=== PATIENT | male | born 1945 ===

== ENCOUNTER 2016-12-21 11:44 | Inpatient (IN) | payer MEDICARE, OTHER ==
[2016-12-21] MEDS ORDERED: NALOXONE 0.4 MG/ML 1 ML VIAL IV PRN (14:39)
[2016-12-21] MEDS ORDERED: ACETAMINOPHEN TAB 325 MG TAB PO PRN (14:39)
[2016-12-21] MEDS ORDERED: ALPRAZolam 0.25 MG TAB PO PRN (14:39)
[2016-12-21] MEDS ORDERED: TEMAZEPAM 15 MG CAP PO PRN (14:39)
[2016-12-21] MEDS ORDERED: HYDROcodone/APAP 5-325MG 1 EACH TAB PO PRN (14:39)
[2016-12-21] MEDS ORDERED: fluPHENAZine DECANOATE 25 MG/ML 5ML MDV IM SCH (14:45)
--- NOTE | 2016-12-21 15:06 | XR ---
EXAMINATION TYPE: XR chest 1V portable DATE OF EXAM: 12/21/2016 3:00 PM COMPARISON: Prior chest x-ray second of January 2013 HISTORY: Pleural effusion TECHNIQUE: Single frontal view of the chest is obtained. FINDINGS: Opacity is present throughout the left hemithorax. Heart size may be somewhat accentuated by rotation. Right lung is clear. No evident pneumothorax. IMPRESSION: Findings may represent a large pleural effusion with associated atelectasis
[2016-12-21] MEDS: IPRATROPIUM 0.5 MG/2.5 ML NEBU INHALATION SCH ×2 (15:20→19:13)
[2016-12-21] MEDS: LEVALBUTEROL NEB (CONC) 1.25 MG/0.5 ML AMP INHALATION SCH ×2 (15:20→19:13)
[2016-12-21 15:36] LABS: Basophils % (A) 0 %; CH 29.6; Eosinophils % (A) 0 %; HCT 32.6 % (39.0-53.0); HDW 2.62; HGB 10.3 gm/dL (13.0-17.5); Luc % (Auto) 2; Lymphocytes # (A) 0.5 k/uL (1.0-4.8); Lymphocytes % (A) 4 %; MCH 29.3 pg (25.0-35.0); MCHC 31.6 g/dL (31.0-37.0); MCV 92.8 fL (80.0-100.0); Mean Platelet Volume 6.6; Monocytes % (A) 8 %; Neutrophils # (A) 11.3 k/uL (1.3-7.7); Neutrophils % (A) 86 %; RBC 3.51 m/uL (4.30-5.90); RDW 13.3 % (11.5-15.5); WBC 13.1 k/uL (3.8-10.6); WBC (Perox) 14.42
[2016-12-21 15:49] LABS: ALT 210 U/L (21-72); AST 162 U/L (17-59); Alkaline Phosphatase 513 U/L (38-126); Anion Gap 10 mmol/L; Blood Urea Nitrogen 7 mg/dL (9-20); Carbon Dioxide 24 mmol/L (22-30); Chloride 102 mmol/L (98-107); Glucose 86 mg/dL (74-99); Non-African American GFR(MDRD) >60 (>60 ml/min/1.73 sqM); Potassium 4.1 mmol/L (3.5-5.1); Sodium 136 mmol/L (137-145); Total Bilirubin 0.5 mg/dL (0.2-1.3); Total Protein 4.9 g/dL (6.3-8.2)
[2016-12-21 15:50] LABS: Hemoglobin A1C 5.6 % (4.2-6.1)
--- NOTE | 2016-12-21 16:10 | XR ---
EXAMINATION TYPE: XR chest 1V portable DATE OF EXAM: 12/21/2016 3:58 PM HISTORY: s/p lt thoracentesis. REFERENCE: Previous study dated 12/21/2016. FINDINGS: There is improved aeration of the left lung. No pneumothorax is seen. The heart is upper limits of normal in size. IMPRESSION: I DO NOT SEE A POSTTHORACENTESIS COMPLICATION.
[2016-12-21] MEDS: PIPERACILLIN-TAZOBACTAM 3.375 GM in DEXTROSE/WATER 1 50ML.BAG IVPB SCH ×2 (16:33→23:18)
[2016-12-21] MEDS: HEPARIN SODIUM,PORCINE 5,000 UNIT/ML 1 ML VIAL SQ SCH ×2 (16:35→20:52)
[2016-12-21] MEDS: cloZAPine 100 MG TAB PO SCH ×2 (16:36→20:49)
[2016-12-21] MEDS: cloZAPine 25 MG TAB PO SCH (16:36)
[2016-12-21] MEDS: methylPREDNISolone SOD SUCCI 125 MG/2 ML VIAL IV SCH ×2 (16:37→23:18)
[2016-12-21] MEDS: SODIUM CHLORIDE 0.9% 1,000 ML IV SCH (16:37)
--- NOTE | 2016-12-21 16:38 | P.CNPUL ---
History of Present Illness Consult date: 12/21/16 Requesting physician: Karina Mccrary Reason for consult: pleural effusion Chief complaint: Shortness of breath and fever History of present illness: This is a 71-year-old white male with history of COPD, bipolar disorder, patient is a resident of a alf, admitted recently to [facility] with mostly symptoms of cough, fever, chills, and cough was productive with yellow phlegm. Chest x-ray and CT of the chest showed pneumonia involving the lingula left lower lobe and there was evidence of a left parapneumonic effusion. Patient was treated with a few days' history of antibiotics, bronchodilators, steroids, and he was not making much improvement. Hence the referral was made to our institution. Upon evaluation the patient, I felt the patient would benefit from a left sided thoracentesis which would be diagnostic and therapeutic at the same time. Hence I performed a left-sided thoracentesis at bedside, and I was able to drain about 550 mL of nonbloody pleural effusion, but felt to be exudative unless proven otherwise. The fluid was sent for different diagnostic studies. The patient himself is a very poor historian. And he is known to have history of bipolar disorder, questionable schizophrenia. Review of Systems ROS unobtainable: due to mental status Past Medical History Past Medical History: Asthma, COPD, GERD/Reflux, Hyperlipidemia, Pneumonia Additional Past Medical History / Comment(s): DJD, arthritis shoulders, past L leg fx-limps and one leg shorter. History of Any Multi-Drug Resistant Organisms: None Reported Past Surgical History: Appendectomy, Orthopedic Surgery, Tonsillectomy Additional Past Surgical History / Comment(s): L hip repair after fx, deviated septal surgery, hemorrhoidectomy, colonoscopy. Past Anesthesia/Blood Transfusion Reactions: No Reported Reaction Past Psychological History: Bipolar, Depression, Schizophrenia Additional Psychological History / Comment(s): Pt resides at [facility]. He has paranoid schizophrenia. He uses no assistive device. He uses the bus system. He states he is thinking about moving. Smoking Status: Current every day smoker Past Alcohol Use History: None Reported Additional Past Alcohol Use History / Comment(s): Pt states he smokes one cigarette a day. He started smoking in 1966. He states he used to drink occasionally but has had nothing to drink in 6 months. Past Drug Use History: Cocaine Additional Drug Use History / Comment(s): Pt states he used to use cocaine but quit that in 1991. - Past Family History Father Family Medical History: No Reported History Additional Family Medical History / Comment(s): Father was healthy and at the age of 83 yrs. Mother Family Medical History: No Reported History Additional Family Medical History / Comment(s): Mother was healthy and in her mid 80's. Medications and Allergies Home Medications Medication Instructions Recorded Confirmed Type Acetaminophen Tab [Tylenol Tab] 500 - 1,000 mg PO Q6HR PRN 12/21/16 12/21/16 History Aspirin 81 mg PO DAILY 12/21/16 12/21/16 History Atorvastatin Calcium [Lipitor] 10 mg PO DAILY 12/21/16 12/21/16 History Benztropine Mesylate 0.5 mg PO BID 12/21/16 12/21/16 History Calcium Carb-Vit D 500Mg-200Un 1 cap PO DAILY 12/21/16 12/21/16 History [Oscal 500+D] Diltiazem Cd [Cardizem Cd] 120 mg PO DAILY 12/21/16 12/21/16 History Divalproex Sodium [Divalproex 500 mg PO BID 12/21/16 12/21/16 History Sodium ER] Docusate [Colace] 100 mg PO DAILY 12/21/16 12/21/16 History Ferrous Sulfate [Feosol] 325 mg PO DAILY 12/21/16 12/21/16 History Ipratropium Nebulized [Atrovent 0.5 mg INHALATION RT-Q6H PRN 12/21/16 12/21/16 History Nebulized] Lisinopril [Zestril] 2.5 mg PO DAILY 12/21/16 12/21/16 History Montelukast [Singulair] 10 mg PO HS 12/21/16 12/21/16 History Multivitamins, Thera [Multivitamin 1 tab PO DAILY 12/21/16 12/21/16 History (formulary)] Ranitidine HCl 150 mg PO BID 12/21/16 12/21/16 History Thiamine [Vitamin B-1] 100 mg PO DAILY 12/21/16 12/21/16 History cloZAPine [Clozaril] 75 mg PO QAM 12/21/16 12/21/16 History cloZAPine [Clozaril] 100 mg PO QAM 12/21/16 12/21/16 History cloZAPine [Clozaril] 200 mg PO HS 12/21/16 12/21/16 History fluPHENAZine DECANOATE [Prolixin 1 dose IM Q21D 12/21/16 12/21/16 History Decanoate] Allergies Allergy/AdvReac Type Severity Reaction Status Date / Time bee pollen Allergy Anaphylaxis Verified 12/21/16 14:16 Physical Exam Vitals: Vital Signs Temp Pulse Resp BP Pulse Ox 12/21/16 15:00 98.9 F 98 18 154/97 93 L 12/21/16 13:37 99.5 F 101 H 20 160/79 92 L Intake and Output 12/21/16 12/21/16 12/21/16 06:59 14:59 22:59 Output Total 150 Balance -150 Output: Urine 150 Other: # Voids 1 Weight 77.111 kg Patient Weight 12/22/16 06:59 Weight 77.111 kg Physical Exam: Revealed a 71-year-old white male in no distress HEENT:[Neck is supple.] [No neck masses.] [No thyromegaly.] [No JVD.] Chest: [Diminished breath sounds and dullness at the left base.] Cardiac Exam: [Normal S1 and S2, no S3 gallop, no murmur.] Abdomen: [Soft, nontender, no megaly, no rebound, no guarding, normal bowel sounds.] Extremities: [No clubbing, no edema, no cyanosis.] Neurological Exam: [Patient is a bit confused, otherwise no focal neurologic deficit.] Results - Laboratory Findings CBC and BMP: 12/21/16 15:10 12/21/16 15:10 Abnormal lab findings: Abnormal Labs 12/21/16 12/21/16 15:10 15:10 WBC 13.1 H RBC 3.51 L Hgb 10.3 L Hct 32.6 L Neutrophils # 11.3 H Lymphocytes # 0.5 L Sodium 136 L BUN 7 L Creatinine 0.62 L Calcium 8.0 L AST 162 H ALT 210 H Alkaline Phosphatase 513 H Total Protein 4.9 L Albumin 2.4 L - Diagnostic Findings Chest x-ray: image reviewed (Large left pleural effusion was noted and atelectasis of the left lower lobe was also noted. Possible consolidation of the left lower lobe.) Assessment and Plan Plan: Impression: 1 acute left lower lobe pneumonia with left parapneumonic effusion, community- acquired, unless proven otherwise. 2 history of COPD severity of which is not clear, 3 history of bipolar disorder. Recommendation: Agree with the present treatment, present antibiotics, bronchodilators, steroids, I will try to review the results of the ultrasound post thoracentesis, since I felt there is some component of loculation noted in the left pleural space which may eventually require surgical intervention. The fluid I drained was sent for different diagnostic studies, results of which are pending. Continue Zosyn, methylprednisolone, Xopenex and Atrovent, and the rest of his psych medications. We'll continue to follow. Time with Patient: Greater than 30
[2016-12-21 17:09] LABS: Glucose,Whole Blood 88 mg/dL (75-99)
[2016-12-21 17:14] LABS: RBC, Body Fluid 4000 /uL
[2016-12-21] MEDS: INSULIN LISPRO (humaLOG) 300 UNIT/3 ML VIAL SQ SCH ×2 (17:16→20:55)
[2016-12-21] MEDS: PANTOPRAZOLE 40 MG TABLET PO SCH (17:28)
--- NOTE | 2016-12-21 17:38 | HP ---
DATE OF ADMISSION: 12/21/2016 CHIEF COMPLAINT: Shortness of breath and cough. HISTORY OF PRESENT ILLNESS: This 71 -year-old gentleman with past medical history of asthma, chronic obstructive pulmonary disease, GERD, hypertension, hyperlipidemia, history of degenerative joint disease, history of appendectomy, history of tonsillectomy, and bipolar depression, was living in [facility]. The patient presented to [facility] with complaints of persistent cough, generalized weakness about two weeks duration. The patient was thought to have community acquired pneumonia and also left lingual area. The patient was admitted and monitored closely. The white count came down initially per [facility] physician but because of lack of improvement, repeat x-ray as well as a CAT scan was also done which showed significant effusion on the left side and Guevara from [facility] discussed the case at length over the phone and the patient was transferred to [facility] for further evaluation and treatment. There is no history of any fever, rigors or chills. No history of headache, loss of consciousness or seizures at this time. PAST MEDICAL HISTORY: History of asthma, COPD, GERD, hypertension, hyperlipidemia, pneumonia, degenerative joint disease, history of appendectomy, history of DJD, bipolar, depression, schizophrenia. MEDICATIONS PRIOR TO ADMISSION: Home medications are: 1. Zestril 2.5 mg daily. 2. Tylenol 500 q6h p.r.n. 3. Multivitamins one p.o. daily. 4. Iron sulfate 320 mg daily. 5. Cardizem CD 120 mg. 6. Lipitor 10 mg p.o. daily. 7. Aspirin 81 mg. 8. Clozaril 70 mg in the morning. 9. Depakote 500 mg p.o. b.i.d. 10. Clozaril 100 mg in the morning and 200 mg p.o. q.h.s. 11. Ranitidine 150 mg p.o. b.i.d. 12. Benztropine 0.5 mg b.i.d. 13. Atrovent 0.5 every 6 hours. 14. one dose IM 21 days. 15. Singulair 10 mg q.h.s. 16. Os-Jem with Vitamin D one p.o. daily. 17. Vitamin B 100 mg daily. 18. Colace 100 mg p.o. daily. ALLERGIES: BEE POLLEN. FAMILY HISTORY: No history of heart disease or strokes in the family. SOCIAL HISTORY: History of smoking, continued ongoing. No history of alcohol intake. REVIEW OF SYSTEMS: ENT: Diminishing hearing. Diminished vision. CARDIOVASCULAR: As mentioned earlier. RESPIRATORY: As mentioned earlier. GI: No nausea or vomiting. : No dysuria. Nervous system: As mentioned earlier. Allergy/immunology: No asthma or hayfever. MUSCULOSKELETAL: As mentioned earlier. DERMATOLOGY: Negative. HEMATOLOGY/ONCOLOGY: No history of anemia. ENDOCRINE: No history of diabetes or hypothyroidism. CONSTITUTIONAL: As mentioned earlier. RHEUMATOLOGY: Negative. PSYCHIATRY: As mentioned earlier. PHYSICAL EXAMINATION: The patient is alert and oriented times three, pulse 101. Blood pressure 160/79, respirations 20, temperature 99.5, pulse ox 92% on 2 liters. NECK: Conjunctivae normal. Oral mucosa moist. NECK: No jugular venous distention. No carotid bruit. No lymph node enlargement. CARDIOVASCULAR: S1, S2 muffled. No S3, no S4. RESPIRATORY: Breath sounds diminished at the bases. Breath sounds markedly diminished on the left side, otherwise minimal shift to the right also present. Otherwise bilateral scattered rhonchi and crackles. ABDOMEN: Soft, nontender. Scaphoid. No mass palpable. EXTREMITIES: Legs no edema, no swelling. Nervous system: Higher functions as mentioned. Moves all 4 limbs. No focal motor or sensory deficits. LYMPHATICS: No lymph nodes palpable in the neck, axillae or groin. SKIN: No ulcer, rash or bleeding. LABS: Awaited at this time. ASSESSMENT: 1. Chronic obstructive pulmonary disease, acute exacerbation, with left lower pneumonia, possibly community acquired with pleural effusion, rule out malignancy. 2. Possible parapneumonic effusion. 3. History of asthma, chronic obstructive pulmonary disease. 4. Gastroesophageal reflux disease. 5. Hypertension. 6. History of pneumonia. 7. History of degenerative joint disease . 8. History of appendectomy. 9. History of orthopedic surgery. 10. Bipolar, depression, schizophrenia. 11. Continued ongoing nicotine dependence. 12. Remote history of cocaine per chart. 13. FULL CODE. RECOMMENDATIONS AND DISCUSSION: In this 71-year-old gentleman who presented with multiple complex medical issues, we will monitor the patient closely. Continue the current medications. Continue symptomatic treatment. Otherwise, at this time I would recommend broad-spectrum IV antibiotics, bronchodilators, and steroids and I would recommend Zosyn and obtain the cultures. Dr. Rene to consult and possible pleural aspiration and after ultrasound localization. The prognosis is guarded because of multiple complex medical issues. Further recommendations to follow. The CAT scan report is not available at this time. EKG done showed normal except for the heart rate of some sinus arrhythmia versus PACs. We will continue to monitor. Guarded prognosis because of complex medical issues, we will monitor the blood sugars closely, discussed with the patient who understands and agrees. Further recommendations to follow. SUSSY
[2016-12-21] MEDS: FORMOTEROL FUMARATE 20 MCG/2 ML NEBU INHALATION SCH (19:13)
[2016-12-21] MEDS: BUDESONIDE 1 MG/2 ML NEBU INHALATION SCH (19:13)
[2016-12-21 20:21] LABS: Glucose,Whole Blood 131 mg/dL (75-99)
[2016-12-21] MEDS: BENZTROPINE MESYLATE 0.5 MG TAB PO SCH (20:48)
[2016-12-21] MEDS: FAMOTIDINE 20 MG TAB PO SCH (20:52)
[2016-12-21] MEDS: DIVALPROEX ER 500 MG TAB.ER.24H PO SCH (20:52)
[2016-12-21] MEDS: MONTELUKAST 10 MG TAB PO SCH (20:53)
[2016-12-22 04:43] LABS: Glucose,Whole Blood 130 mg/dL (75-99)
[2016-12-22] MEDS: methylPREDNISolone SOD SUCCI 125 MG/2 ML VIAL IV SCH ×4 (06:13→23:00)
[2016-12-22 07:39] LABS: Glucose,Whole Blood 126 mg/dL (75-99)
[2016-12-22 07:54] LABS: Anion Gap 8 mmol/L; Blood Urea Nitrogen 13 mg/dL (9-20); Calcium 8.2 mg/dL (8.4-10.2); Carbon Dioxide 27 mmol/L (22-30); Chloride 103 mmol/L (98-107); Glucose 125 mg/dL (74-99); Non-African American GFR(MDRD) >60 (>60 ml/min/1.73 sqM); Potassium 4.5 mmol/L (3.5-5.1); Sodium 138 mmol/L (137-145)
[2016-12-22] MEDS: INSULIN LISPRO (humaLOG) 300 UNIT/3 ML VIAL SQ SCH ×4 (07:58→23:00)
[2016-12-22] MEDS: ASPIRIN 81 MG CHEW PO SCH (08:07)
[2016-12-22] MEDS: FAMOTIDINE 20 MG TAB PO SCH ×2 (08:07→22:59)
[2016-12-22] MEDS: LISINOPRIL 2.5 MG TAB PO SCH (08:07)
[2016-12-22] MEDS: cloZAPine 100 MG TAB PO SCH ×2 (08:07→22:59)
[2016-12-22] MEDS: DIVALPROEX ER 500 MG TAB.ER.24H PO SCH ×2 (08:07→22:59)
[2016-12-22 08:08] LABS: Basophils % (A) 0 %; CH 29.6; Eosinophils % (A) 0 %; HCT 36.3 % (39.0-53.0); HDW 2.64; HGB 11.7 gm/dL (13.0-17.5); Luc # (Auto) 0.05; Luc % (Auto) 0; Lymphocytes # (A) 0.5 k/uL (1.0-4.8); Lymphocytes % (A) 3 %; MCHC 32.3 g/dL (31.0-37.0); MCV 92.7 fL (80.0-100.0); Mean Platelet Volume 6.7; Monocytes # (A) 0.5 k/uL (0-1.0); Monocytes % (A) 4 %; Neutrophils # (A) 13.3 k/uL (1.3-7.7); Neutrophils % (A) 93 %; RBC 3.91 m/uL (4.30-5.90); RDW 13.2 % (11.5-15.5); WBC 14.3 k/uL (3.8-10.6); WBC (Perox) 14.07
[2016-12-22] MEDS: PANTOPRAZOLE 40 MG TABLET PO SCH (08:08)
[2016-12-22] MEDS: BENZTROPINE MESYLATE 0.5 MG TAB PO SCH ×2 (08:08→22:59)
[2016-12-22] MEDS: DOCUSATE 100 MG CAP PO SCH (08:08)
[2016-12-22] MEDS: DILTIAZEM CD 120 MG CAP.ER.24H PO SCH (08:08)
[2016-12-22] MEDS: HEPARIN SODIUM,PORCINE 5,000 UNIT/ML 1 ML VIAL SQ SCH ×2 (08:08→22:59)
[2016-12-22] MEDS: PIPERACILLIN-TAZOBACTAM 3.375 GM in DEXTROSE/WATER 1 50ML.BAG IVPB SCH ×3 (08:49→23:49)
--- NOTE | 2016-12-22 10:29 | PCN ---
DATE OF PROCEDURE: 12/21/2016 PROCEDURE: Left-sided thoracentesis. PREOPERATIVE DIAGNOSIS: Left pleural effusion and pneumonia. POSTOPERATIVE DIAGNOSIS: Left pleural effusion and pneumonia. ANESTHESIA: 4 mL of 1% lidocaine. DESCRIPTION OF PROCEDURE: Patient was placed in a sitting upright position. The area below the left scapula was prepared in a sterile fashion and drapes were applied. At the level of the eighth intercostal space and tip of the scapula, a 26-gauge needle was inserted and advanced into the pleural space. Fluid was localized. Then a standard thoracentesis catheter and needle were used. The needle and the catheter were inserted at the same site and fastened to the pleural space. Fluid was localized. Then the catheter was advanced out of the needle and the needle was pulled out of the pleural space. Freely flowing fluid was removed. Roughly 550 mL total. Fluid was removed. The fluid was dark yellow in color, and nonbloody. The procedure was well tolerated. No evidence of any immediate complications. No evidence of pneumothorax. Fluid was sent for different diagnostic studies.
[2016-12-22] MEDS: BUDESONIDE 1 MG/2 ML NEBU INHALATION SCH ×2 (11:04→21:02)
[2016-12-22] MEDS: FORMOTEROL FUMARATE 20 MCG/2 ML NEBU INHALATION SCH ×2 (11:04→21:02)
[2016-12-22] MEDS: LEVALBUTEROL NEB (CONC) 1.25 MG/0.5 ML AMP INHALATION SCH ×4 (11:05→21:02)
[2016-12-22] MEDS: IPRATROPIUM 0.5 MG/2.5 ML NEBU INHALATION SCH ×4 (11:05→21:02)
[2016-12-22 11:27] LABS: Glucose,Whole Blood 151 mg/dL (75-99)
[2016-12-22] MEDS: THIAMINE 100 MG TAB PO SCH (11:43)
[2016-12-22] MEDS: cloZAPine 25 MG TAB PO SCH (11:43)
[2016-12-22] MEDS: FERROUS SULFATE 325 MG TAB PO SCH (11:43)
[2016-12-22] MEDS: CALCIUM CARB-VIT D 500MG-200UN 1 EACH TAB PO SCH (11:43)
[2016-12-22] MEDS: ATORVASTATIN 10 MG TAB PO SCH (11:43)
[2016-12-22] MEDS: MULTIVITAMINS, THERA 1 EACH TAB PO SCH (11:43)
--- NOTE | 2016-12-22 12:03 | P.PN ---
Subjective This is a 71-year-old white male with history of COPD, bipolar disorder, patient is a resident of a snf, admitted recently to [facility] with mostly symptoms of cough, fever, chills, and cough was productive with yellow phlegm. Chest x-ray and CT of the chest showed pneumonia involving the lingula left lower lobe and there was evidence of a left parapneumonic effusion. Patient was treated with a few days' history of antibiotics, bronchodilators, steroids, and he was not making much improvement. Hence the referral was made to our institution. Upon evaluation the patient, I felt the patient would benefit from a left sided thoracentesis which would be diagnostic and therapeutic at the same time. Hence I performed a left-sided thoracentesis at bedside, and I was able to drain about 550 mL of nonbloody pleural effusion, but felt to be exudative unless proven otherwise. The fluid was sent for different diagnostic studies. The patient himself is a very poor historian. And he is known to have history of bipolar disorder, questionable schizophrenia. the patient is seen again today 12/22/2016 in follow-up on the regular medical floor. He is awake and alert in no acute distress. He is a poor historian but does deny any worsening shortness of breath at this time. He is status post thoracentesis of the left chest yesterday done by Dr. Rene. Analysis and cytology are pending. He is currently maintaining O2 saturations in the low 90s on 2 L/m per nasal cannula. He has been afebrile. Objective - Vital Signs Vital signs: Vital Signs Temp 98.5 F 12/21/16 21:34 Pulse 89 12/22/16 07:00 Resp 16 12/22/16 08:00 BP 129/73 12/22/16 07:00 Pulse Ox 91 L 12/22/16 07:00 Intake & Output 12/21/16 12/22/16 12/22/16 18:59 06:59 18:59 Output Total 150 200 Balance -150 -200 Weight 77.111 kg Output: Urine 150 200 Other: Voiding Method Urinal Urinal Urinal Diaper # Voids 1 3 - Exam GENERAL EXAM: Alert, comfortable in no apparent distress. HEAD: Normocephalic. EYES: Normal reaction of pupils, equal size. NOSE: Clear with pink turbinates. THROAT: No erythema or exudates. NECK: No masses, no JVD. CHEST: No chest wall deformity. LUNGS: Equal air entry with few scattered rhonchi, crackles in the posterior bases more so on the left. CVS: S1 and S2 normal with no audible murmurs, regular rhythm. ABDOMEN: No hepatosplenomegaly, normal bowel sounds, no guarding or rigidity. SPINE: No scoliosis or deformity SKIN: No rashes CENTRAL NERVOUS SYSTEM: No focal deficits, tone is normal in all 4 extremities. - Labs CBC & Chem 7: 12/22/16 07:07 12/22/16 07:07 Labs: Abnormal Lab Results - Last 24 Hours (Table) 12/21/16 12/21/16 12/21/16 Range/Units 15:10 15:10 20:19 WBC 13.1 H (3.8-10.6) k/uL RBC 3.51 L (4.30-5.90) m/uL Hgb 10.3 L (13.0-17.5) gm/dL Hct 32.6 L (39.0-53.0) % Neutrophils # 11.3 H (1.3-7.7) k/uL Lymphocytes # 0.5 L (1.0-4.8) k/uL Sodium 136 L (137-145) mmol/L BUN 7 L (9-20) mg/dL Creatinine 0.62 L (0.66-1.25) mg/dL Glucose (74-99) mg/dL POC Glucose (mg/dL) 131 H (75-99) mg/dL Calcium 8.0 L (8.4-10.2) mg/dL AST 162 H (17-59) U/L ALT 210 H (21-72) U/L Alkaline Phosphatase 513 H (38-126) U/L Total Protein 4.9 L (6.3-8.2) g/dL Albumin 2.4 L (3.5-5.0) g/dL 12/22/16 12/22/16 12/22/16 Range/Units 04:42 07:07 07:07 WBC 14.3 H (3.8-10.6) k/uL RBC 3.91 L (4.30-5.90) m/uL Hgb 11.7 L (13.0-17.5) gm/dL Hct 36.3 L (39.0-53.0) % Neutrophils # 13.3 H (1.3-7.7) k/uL Lymphocytes # 0.5 L (1.0-4.8) k/uL Sodium (137-145) mmol/L BUN (9-20) mg/dL Creatinine 0.61 L (0.66-1.25) mg/dL Glucose 125 H (74-99) mg/dL POC Glucose (mg/dL) 130 H (75-99) mg/dL Calcium 8.2 L (8.4-10.2) mg/dL AST (17-59) U/L ALT (21-72) U/L Alkaline Phosphatase (38-126) U/L Total Protein (6.3-8.2) g/dL Albumin (3.5-5.0) g/dL 12/22/16 12/22/16 Range/Units 07:24 11:22 WBC (3.8-10.6) k/uL RBC (4.30-5.90) m/uL Hgb (13.0-17.5) gm/dL Hct (39.0-53.0) % Neutrophils # (1.3-7.7) k/uL Lymphocytes # (1.0-4.8) k/uL Sodium (137-145) mmol/L BUN (9-20) mg/dL Creatinine (0.66-1.25) mg/dL Glucose (74-99) mg/dL POC Glucose (mg/dL) 126 H 151 H (75-99) mg/dL Calcium (8.4-10.2) mg/dL AST (17-59) U/L ALT (21-72) U/L Alkaline Phosphatase (38-126) U/L Total Protein (6.3-8.2) g/dL Albumin (3.5-5.0) g/dL Microbiology - Last 24 Hours (Table) 12/21/16 15:45 Gram Stain - Preliminary Pleural Fluid Body Fluid Culture - Preliminary Assessment and Plan Plan: impression: #1 Acute left lower lobe pneumonia with left parapneumonic effusion, community acquired. Status post thoracentesis. Fluid analysis and cytology are pending. #2 History of COPD, severity of which is unclear with history of chronic and ongoing tobacco dependence. #3 History of bipolar disorder and paranoid schizophrenia. #4 Hyperlipidemia. #5 Gastroesophageal reflux disease. #6 Arthritis in the bilateral shoulders. Plan: The patient was seen and evaluated by Dr. Rene. The patient is stable from the pulmonary standpoint. We'll continue with his current medications. We will await final analysis of the pleural fluid. We'll continue to follow.
--- NOTE | 2016-12-22 15:23 | P.PN ---
Subjective Date of service 12/22/2016. Progress note being dictated for Dr. Mccrary. Interval history: This a 71-year-old gentleman admitted with acute COPD exacerbation, left lower lobe pneumonia, ruling out malignancy, possible parapneumonic effusion and multiple other medical issues. Maintained on nebulized bronchodilators, systemic steroids, and antibiotics. Status post left thoracentesis yesterday, with 550 MLS nonbloody pleural fluid drained; exudative per pulmonary cytology pending. Tolerated procedure well. Confused, poor historian and extremely weak, two person assist.maintaining O2 sats of 91% on 2 L nasal cannula. Afebrile. Blood sugars controlled. Objective - Vital Signs Vital signs: Vital Signs Temp 98.5 F 12/21/16 21:34 Pulse 89 12/22/16 07:00 Resp 16 12/22/16 08:00 BP 129/73 12/22/16 07:00 Pulse Ox 91 L 12/22/16 07:00 Intake & Output 12/21/16 12/22/16 12/22/16 18:59 06:59 18:59 Intake Total 190 Output Total 150 200 Balance -150 -200 190 Weight 77.111 kg Intake: Intake, IV Titration 190 Amount Piperacillin-Tazobactam 3 50 .375 gm In Dextrose/Water 1 50ml.bag @ 12.5 mls/hr IVPB Q8HR PHONG Rx#: [id number] Sodium Chloride 0.9% 1, 140 000 ml @ 20 mls/hr IV . Q24H PHONG Rx#:[id number] Output: Urine 150 200 Other: Voiding Method Urinal Urinal Urinal Diaper # Voids 1 3 - Exam PHYSICAL EXAM: VITAL SIGNS: As above GENERAL: [Lying in bed, tired appearing] HEENT: [Pupils equal conjunctiva normal.] NECK: [Supple, no JVD] RESPIRATORY EFFORT:[Increased] LUNGS: [Diminished, bibasilar crackles with scattered rhonchi] CARDIOVASCULAR[regular S1 and S2, no murmur rub or gallop, no edema] GI: [Abdomen soft, nontender, positive bowel sounds.] PSYCH: [Alert and oriented -2, pleasantly confused] NEURO: No focal deficits, moves all 4 extremities, strength and sensation grossly intact - Labs CBC & Chem 7: 12/22/16 07:07 03/25/17 07:07 Labs: Abnormal Lab Results - Last 24 Hours (Table) 12/21/16 12/21/16 12/21/16 Range/Units 15:10 15:10 20:19 WBC 13.1 H (3.8-10.6) k/uL RBC 3.51 L (4.30-5.90) m/uL Hgb 10.3 L (13.0-17.5) gm/dL Hct 32.6 L (39.0-53.0) % Neutrophils # 11.3 H (1.3-7.7) k/uL Lymphocytes # 0.5 L (1.0-4.8) k/uL Sodium 136 L (137-145) mmol/L BUN 7 L (9-20) mg/dL Creatinine 0.62 L (0.66-1.25) mg/dL Glucose (74-99) mg/dL POC Glucose (mg/dL) 131 H (75-99) mg/dL Calcium 8.0 L (8.4-10.2) mg/dL AST 162 H (17-59) U/L ALT 210 H (21-72) U/L Alkaline Phosphatase 513 H (38-126) U/L Total Protein 4.9 L (6.3-8.2) g/dL Albumin 2.4 L (3.5-5.0) g/dL 12/22/16 12/22/16 12/22/16 Range/Units 04:42 07:07 07:07 WBC 14.3 H (3.8-10.6) k/uL RBC 3.91 L (4.30-5.90) m/uL Hgb 11.7 L (13.0-17.5) gm/dL Hct 36.3 L (39.0-53.0) % Neutrophils # 13.3 H (1.3-7.7) k/uL Lymphocytes # 0.5 L (1.0-4.8) k/uL Sodium (137-145) mmol/L BUN (9-20) mg/dL Creatinine 0.61 L (0.66-1.25) mg/dL Glucose 125 H (74-99) mg/dL POC Glucose (mg/dL) 130 H (75-99) mg/dL Calcium 8.2 L (8.4-10.2) mg/dL AST (17-59) U/L ALT (21-72) U/L Alkaline Phosphatase (38-126) U/L Total Protein (6.3-8.2) g/dL Albumin (3.5-5.0) g/dL 12/22/16 12/22/16 Range/Units 07:24 11:22 WBC (3.8-10.6) k/uL RBC (4.30-5.90) m/uL Hgb (13.0-17.5) gm/dL Hct (39.0-53.0) % Neutrophils # (1.3-7.7) k/uL Lymphocytes # (1.0-4.8) k/uL Sodium (137-145) mmol/L BUN (9-20) mg/dL Creatinine (0.66-1.25) mg/dL Glucose (74-99) mg/dL POC Glucose (mg/dL) 126 H 151 H (75-99) mg/dL Calcium (8.4-10.2) mg/dL AST (17-59) U/L ALT (21-72) U/L Alkaline Phosphatase (38-126) U/L Total Protein (6.3-8.2) g/dL Albumin (3.5-5.0) g/dL Microbiology - Last 24 Hours (Table) 12/21/16 15:45 Gram Stain - Preliminary Pleural Fluid Body Fluid Culture - Preliminary Assessment and Plan Plan: 1. Acute exacerbation COPD with (pneumonia, possible community-acquired with left parapneumonic effusion, rule out malignancy. Status post left thoracentesis. Cytology pending. 2. History of chronic intermittent asthma, COPD 3. [Gastroesophageal reflux disease]. 4. [Hypertension]. 5. [History of pneumonia]. 6. [Degenerative joint disease]. 7. [Bipolar, depression, schizophrenia]. 8. Continued ongoing nicotine dependence 9. Hyperlipidemia Plan: Continue on current medication regime , nebulized bronchodilators, broad- spectrum IV antibiotics, steroids, monitoring and symptomatic treatment. Smoking cessation readdressed. Pleural cytology pending. Follow closely with pulmonary. Close monitoring of Accu-Cheks as patient on systemic steroids, currently controlled .further recommendations to follow. The impression and plan of care has been dictated as directed. : I performed a H&P examination of this patient and discussed the same with the dictator. I agree with the dictator's note. Any additional findings/opinions/ etc. will be noted.
[2016-12-22 17:40] LABS: Glucose,Whole Blood 129 mg/dL (75-99)
[2016-12-22] MEDS: SODIUM CHLORIDE 0.9% 1,000 ML IV SCH (17:53)
[2016-12-22 22:45] LABS: Glucose,Whole Blood 177 mg/dL (75-99)
[2016-12-22] MEDS: MONTELUKAST 10 MG TAB PO SCH (23:00)
[2016-12-23] MEDS: methylPREDNISolone SOD SUCCI 125 MG/2 ML VIAL IV SCH ×3 (06:01→19:55)
[2016-12-23] MEDS: LEVALBUTEROL NEB (CONC) 1.25 MG/0.5 ML AMP INHALATION SCH ×4 (07:43→19:23)
[2016-12-23] MEDS: FORMOTEROL FUMARATE 20 MCG/2 ML NEBU INHALATION SCH ×2 (07:43→19:20)
[2016-12-23] MEDS: IPRATROPIUM 0.5 MG/2.5 ML NEBU INHALATION SCH ×4 (07:43→19:23)
[2016-12-23] MEDS: BUDESONIDE 1 MG/2 ML NEBU INHALATION SCH ×2 (07:43→19:20)
[2016-12-23] MEDS ORDERED: SODIUM BICARB 8.4% 50 ML SYR (1 MEQ/ML) IV STA (07:47)
[2016-12-23 07:59] LABS: Glucose,Whole Blood 125 mg/dL (75-99)
[2016-12-23 08:37] LABS: Basophils % (A) 0 %; CH 29.7; CHCM 32.1; Eosinophils % (A) 0 %; HDW 2.57; HGB 10.6 gm/dL (13.0-17.5); Luc # (Auto) 0.14; Luc % (Auto) 1; Lymphocytes # (A) 0.5 k/uL (1.0-4.8); Lymphocytes % (A) 2 %; MCH 29.8 pg (25.0-35.0); MCHC 32.1 g/dL (31.0-37.0); MCV 92.8 fL (80.0-100.0); Mean Platelet Volume 7.2; Monocytes # (A) 1.1 k/uL (0-1.0); Monocytes % (A) 5 %; Neutrophils # (A) 21.5 k/uL (1.3-7.7); Neutrophils % (A) 93 %; RBC 3.55 m/uL (4.30-5.90); RDW 13.2 % (11.5-15.5); WBC 23.2 k/uL (3.8-10.6); WBC (Perox) 25.42
[2016-12-23 09:02] LABS: Anion Gap 5 mmol/L; Blood Urea Nitrogen 18 mg/dL (9-20); Calcium 8.2 mg/dL (8.4-10.2); Carbon Dioxide 31 mmol/L (22-30); Chloride 105 mmol/L (98-107); Glucose 117 mg/dL (74-99); Non-African American GFR(MDRD) >60 (>60 ml/min/1.73 sqM); Potassium 4.5 mmol/L (3.5-5.1); Sodium 141 mmol/L (137-145)
[2016-12-23] MEDS: INSULIN LISPRO (humaLOG) 300 UNIT/3 ML VIAL SQ SCH ×4 (10:32→21:29)
[2016-12-23] MEDS: PANTOPRAZOLE 40 MG TABLET PO SCH (10:38)
[2016-12-23] MEDS: ASPIRIN 81 MG CHEW PO SCH (10:39)
[2016-12-23] MEDS: BENZTROPINE MESYLATE 0.5 MG TAB PO SCH ×2 (10:39→21:29)
[2016-12-23] MEDS: ATORVASTATIN 10 MG TAB PO SCH (10:39)
[2016-12-23] MEDS: cloZAPine 25 MG TAB PO SCH (10:40)
[2016-12-23] MEDS: cloZAPine 100 MG TAB PO SCH ×2 (10:40→21:28)
[2016-12-23] MEDS: DOCUSATE 100 MG CAP PO SCH (10:41)
[2016-12-23] MEDS: DILTIAZEM CD 120 MG CAP.ER.24H PO SCH (10:41)
[2016-12-23] MEDS: FAMOTIDINE 20 MG TAB PO SCH ×2 (10:41→21:29)
[2016-12-23] MEDS: DIVALPROEX ER 500 MG TAB.ER.24H PO SCH ×2 (10:41→21:28)
[2016-12-23] MEDS: LISINOPRIL 2.5 MG TAB PO SCH (10:42)
[2016-12-23] MEDS: HEPARIN SODIUM,PORCINE 5,000 UNIT/ML 1 ML VIAL SQ SCH ×2 (10:42→21:29)
[2016-12-23 11:18] LABS: Glucose,Whole Blood 138 mg/dL (75-99)
[2016-12-23] MEDS: PIPERACILLIN-TAZOBACTAM 3.375 GM in DEXTROSE/WATER 1 50ML.BAG IVPB SCH ×3 (11:49→23:37)
--- NOTE | 2016-12-23 11:49 | PN ---
DATE OF SERVICE: 12/22/2016 This 71-year-old gentleman who was admitted with COPD acute exacerbation also had left-sided pleural effusion. Patient had thoracentesis. Dr. Rene is following the patient. The cytology is pending at this time. I have seen and evaluated the patient with the nurse practitioner. Please refer to nurse practitioner notes and impression documented as scribe for further information. REVIEW OF SYSTEMS: CARDIOVASCULAR: No angina or palpitations. GI: As mentioned. : As mentioned. NERVOUS SYSTEM: Mild diffuse weakness. Current medications: 1. Tylenol p.r.n. 2. [place] 5 mg every 6. 3. Xanax 0.5 every 6. 4. Aspirin 81 mg daily. 5. Lipitor 10 mg. 7. Pulmicort 1 mg b.i.d.. 8. Os-Jem 500 mg p.o. daily. 9. Clozaril 7 mg in the morning. 10. Cardizem CD 120 mg p.o. daily. 11. Depakote ER 500 mg p.o. daily. 12. Colace 100 mg p.o. daily. 13. Pepcid 20 mg p.o. b.i.d. 14. Iron sulfate 325 mg daily. 15. Cipro. 16. Toprol-XL. 17. Performs 20 mg b.i.d. 18. Heparin. 19. Atrovent and Xopenex q.i.d. and p.r.n. 20. Zestril 2.5 mg p.o. 21. Solumedrol 60 IV every 6. 22. Multivitamins. 23. Singulair 10 mg daily. 24. Multivitamin 1 p.o. daily. 25. Narcan p.r.n. 26. Protonix 40 mg. 27. Zosyn 3.375 p.r.n. 28. Restoril 15 mg. 29. Vitamin B 100 mg p.o. daily. RECOMMENDATIONS: Continue current medications. Await biopsy. Continue the rest of the medications. I would also recommend to increase ambulation with PT and OT for generalized weakness. Continue to monitor. Guarded prognosis. Further recommendations to follow. See orders for further details. MTDD
[2016-12-23] MEDS: CALCIUM CARB-VIT D 500MG-200UN 1 EACH TAB PO SCH (11:51)
[2016-12-23] MEDS: FERROUS SULFATE 325 MG TAB PO SCH (11:51)
[2016-12-23] MEDS: MULTIVITAMINS, THERA 1 EACH TAB PO SCH (12:40)
[2016-12-23] MEDS: THIAMINE 100 MG TAB PO SCH (12:40)
--- NOTE | 2016-12-23 12:50 | P.PN ---
Subjective Principal diagnosis: Acute left lower lobe pneumonia and left parapneumonic effusion This is a 71-year-old white male with history of COPD, bipolar disorder, patient is a resident of a [facility], admitted recently to [facility] with mostly symptoms of cough, fever, chills, and cough was productive with yellow phlegm. Chest x-ray and CT of the chest showed pneumonia involving the lingula left lower lobe and there was evidence of a left parapneumonic effusion. Patient was treated with a few days' history of antibiotics, bronchodilators, steroids, and he was not making much improvement. Hence the referral was made to our institution. Upon evaluation the patient, I felt the patient would benefit from a left sided thoracentesis which would be diagnostic and therapeutic at the same time. Hence I performed a left-sided thoracentesis at bedside, and I was able to drain about 550 mL of nonbloody pleural effusion, but felt to be exudative unless proven otherwise. The fluid was sent for different diagnostic studies. The patient himself is a very poor historian. And he is known to have history of bipolar disorder, questionable schizophrenia. the patient is seen again today 12/22/2016 in follow-up on the regular medical floor. He is awake and alert in no acute distress. He is a poor historian but does deny any worsening shortness of breath at this time. He is status post thoracentesis of the left chest yesterday done by Dr. Rene. Analysis and cytology are pending. He is currently maintaining O2 saturations in the low 90s on 2 L/m per nasal cannula. He has been afebrile. Patient was reevaluated today on 12/23/2016, he is feeling much better since he had his thoracentesis. The final report on the fluid is pending, but clinically it was felt to be parapneumonic. However what is concerning is the fact that he continues to have a significant amount of consolidation in the left lower lobe, and possibly some residual effusion, although I tried to drain the patient fully on my last the procedure. At any rate I will recommend repeat ultrasound and CT of the fluid is loculated, may have to have surgical drainage by thoracic surgery. In the meantime the patient remains on antibiotics for his pneumonia involving the left lower lobe. Objective - Vital Signs Vital signs: Vital Signs Temp 97.7 F 12/23/16 07:00 Pulse 98 12/23/16 08:05 Resp 18 12/23/16 07:00 BP 131/73 12/23/16 07:00 Pulse Ox 92 L 12/23/16 07:00 Intake & Output 12/22/16 12/23/16 12/23/16 18:59 06:59 18:59 Intake Total 190 Output Total 500 Balance 190 -500 Intake: Intake, IV Titration 190 Amount Piperacillin-Tazobactam 3 50 .375 gm In Dextrose/Water 1 50ml.bag @ 12.5 mls/hr IVPB Q8HR PHONG Rx#: [id number] Sodium Chloride 0.9% 1, 140 000 ml @ 20 mls/hr IV . Q24H PHONG Rx#:[id number] Output: Urine 500 Other: Voiding Method Urinal Urinal Diaper Diaper # Voids 2 - Exam GENERAL EXAM: Alert, comfortable in no apparent distress. HEAD: Normocephalic. EYES: Normal reaction of pupils, equal size. NOSE: Clear with pink turbinates. THROAT: No erythema or exudates. NECK: No masses, no JVD. CHEST: No chest wall deformity. LUNGS: Equal air entry with few scattered rhonchi, crackles in the posterior bases more so on the left. CVS: S1 and S2 normal with no audible murmurs, regular rhythm. ABDOMEN: No hepatosplenomegaly, normal bowel sounds, no guarding or rigidity. SPINE: No scoliosis or deformity SKIN: No rashes CENTRAL NERVOUS SYSTEM: No focal deficits, tone is normal in all 4 extremities. - Labs CBC & Chem 7: 12/23/16 07:54 12/23/16 07:54 Labs: Abnormal Lab Results - Last 24 Hours (Table) 12/22/16 12/22/16 12/23/16 Range/Units 17:20 22:44 07:41 WBC (3.8-10.6) k/uL RBC (4.30-5.90) m/uL Hgb (13.0-17.5) gm/dL Hct (39.0-53.0) % Neutrophils # (1.3-7.7) k/uL Lymphocytes # (1.0-4.8) k/uL Monocytes # (0-1.0) k/uL Carbon Dioxide (22-30) mmol/L Glucose (74-99) mg/dL POC Glucose (mg/dL) 129 H 177 H 125 H (75-99) mg/dL Calcium (8.4-10.2) mg/dL 12/23/16 12/23/16 12/23/16 Range/Units 07:54 07:54 11:14 WBC 23.2 H (3.8-10.6) k/uL RBC 3.55 L (4.30-5.90) m/uL Hgb 10.6 L (13.0-17.5) gm/dL Hct 33.0 L (39.0-53.0) % Neutrophils # 21.5 H (1.3-7.7) k/uL Lymphocytes # 0.5 L (1.0-4.8) k/uL Monocytes # 1.1 H (0-1.0) k/uL Carbon Dioxide 31 H (22-30) mmol/L Glucose 117 H (74-99) mg/dL POC Glucose (mg/dL) 138 H (75-99) mg/dL Calcium 8.2 L (8.4-10.2) mg/dL Microbiology - Last 24 Hours (Table) 12/21/16 15:10 Blood Culture - Preliminary Blood No Growth after 24 hours 12/21/16 15:45 Gram Stain - Preliminary Pleural Fluid Body Fluid Culture - Preliminary Assessment and Plan Plan: Impression: #1 Acute left lower lobe pneumonia with left parapneumonic effusion, community acquired. Status post thoracentesis. Fluid analysis and cytology are pending. #2 History of COPD, severity of which is unclear with history of chronic and ongoing tobacco dependence. #3 History of bipolar disorder and paranoid schizophrenia. #4 Hyperlipidemia. #5 Gastroesophageal reflux disease. #6 Arthritis in the bilateral shoulders. Recommendation: Continue present treatment plan including antibiotics, await the final cytology and LDH protein on the fluid which I drained operative days ago, ordered ultrasound of the chest to determine whether we are dealing with significant loculation of the fluid and if there is loculation the patient may need surgical evaluation. Hopefully by then we have some reports on the cytology. Time with Patient: Less than 30
[2016-12-23 17:27] LABS: Glucose,Whole Blood 129 mg/dL (75-99)
[2016-12-23] MEDS: SODIUM CHLORIDE 0.9% 1,000 ML IV SCH (18:06)
[2016-12-23 20:14] LABS: Glucose,Whole Blood 154 mg/dL (75-99)
[2016-12-23] MEDS: MONTELUKAST 10 MG TAB PO SCH (21:29)
[2016-12-24] MEDS ORDERED: methylPREDNISolone SOD SUCCI 125 MG/2 ML VIAL IV SCH
[2016-12-24] MEDS: methylPREDNISolone SOD SUCCI 40 MG/ML 1 ML VIAL IV SCH ×3 (02:12→19:30)
[2016-12-24] MEDS: LEVALBUTEROL NEB (CONC) 1.25 MG/0.5 ML AMP INHALATION SCH ×4 (07:06→19:43)
[2016-12-24] MEDS: IPRATROPIUM 0.5 MG/2.5 ML NEBU INHALATION SCH ×4 (07:06→19:44)
[2016-12-24] MEDS: FORMOTEROL FUMARATE 20 MCG/2 ML NEBU INHALATION SCH ×2 (07:07→19:43)
[2016-12-24] MEDS: BUDESONIDE 1 MG/2 ML NEBU INHALATION SCH ×2 (07:07→19:43)
[2016-12-24 07:14] LABS: Glucose,Whole Blood 107 mg/dL (75-99)
[2016-12-24] MEDS: INSULIN LISPRO (humaLOG) 300 UNIT/3 ML VIAL SQ SCH ×4 (08:33→20:21)
[2016-12-24 08:37] LABS: Basophils % (A) 0 %; CH 29.3; CHCM 31.7; Eosinophils % (A) 0 %; HCT 37.1 % (39.0-53.0); HDW 2.45; HGB 11.5 gm/dL (13.0-17.5); Luc # (Auto) 0.12; Luc % (Auto) 1; Lymphocytes # (A) 0.6 k/uL (1.0-4.8); Lymphocytes % (A) 3 %; MCH 28.7 pg (25.0-35.0); MCHC 30.9 g/dL (31.0-37.0); MCV 92.7 fL (80.0-100.0); Mean Platelet Volume 6.4; Monocytes # (A) 0.9 k/uL (0-1.0); Monocytes % (A) 4 %; Neutrophils # (A) 21.1 k/uL (1.3-7.7); Neutrophils % (A) 93 %; RDW 13.2 % (11.5-15.5); WBC 22.7 k/uL (3.8-10.6); WBC (Perox) 23.93
--- NOTE | 2016-12-24 08:41 | US ---
EXAMINATION TYPE: US chest DATE OF EXAM: 12/24/2016 8:29 AM COMPARISON: NONE CLINICAL HISTORY: loculated pleural effusion. EXAM MEASUREMENTS: Right Pleural Effusion fluid pocket: 2.0 cm Right skin to fluid thickness: 3.0 cm Left Pleural Effusion fluid pocket: 4.9 cm Left skin to fluid thickness: 3.3 cm Left sided pleural effusion highly loculated. Right side NOT marked for possible thoracentesis outside the dept. Left side marked for possible thoracentesis outside the dept. Pulmonologists are able to review the images in the patient?s EMR. IMPRESSIONS: BILATERAL PLEURAL EFFUSIONS. THAT ON THE LEFT IS LOCULATED.
[2016-12-24 08:56] LABS: Anion Gap 10 mmol/L; Blood Urea Nitrogen 20 mg/dL (9-20); Calcium 8.7 mg/dL (8.4-10.2); Carbon Dioxide 29 mmol/L (22-30); Chloride 104 mmol/L (98-107); Glucose 110 mg/dL (74-99); Non-African American GFR(MDRD) >60 (>60 ml/min/1.73 sqM); Potassium 4.9 mmol/L (3.5-5.1); Sodium 143 mmol/L (137-145)
[2016-12-24] MEDS: PIPERACILLIN-TAZOBACTAM 3.375 GM in DEXTROSE/WATER 1 50ML.BAG IVPB SCH ×2 (09:07→15:19)
[2016-12-24] MEDS: PANTOPRAZOLE 40 MG TABLET PO SCH (09:23)
[2016-12-24] MEDS: ASPIRIN 81 MG CHEW PO SCH (09:23)
[2016-12-24] MEDS: ATORVASTATIN 10 MG TAB PO SCH (09:24)
[2016-12-24] MEDS: BENZTROPINE MESYLATE 0.5 MG TAB PO SCH ×2 (09:24→20:21)
[2016-12-24] MEDS: cloZAPine 25 MG TAB PO SCH (09:24)
[2016-12-24] MEDS: FAMOTIDINE 20 MG TAB PO SCH ×2 (09:25→20:21)
[2016-12-24] MEDS: DILTIAZEM CD 120 MG CAP.ER.24H PO SCH (09:25)
[2016-12-24] MEDS: cloZAPine 100 MG TAB PO SCH ×2 (09:25→20:20)
[2016-12-24] MEDS: DOCUSATE 100 MG CAP PO SCH (09:25)
[2016-12-24] MEDS: DIVALPROEX ER 500 MG TAB.ER.24H PO SCH ×2 (09:25→20:21)
[2016-12-24] MEDS: HEPARIN SODIUM,PORCINE 5,000 UNIT/ML 1 ML VIAL SQ SCH ×2 (09:26→20:20)
[2016-12-24] MEDS: LISINOPRIL 2.5 MG TAB PO SCH (09:26)
--- NOTE | 2016-12-24 10:52 | PN ---
DATE OF SERVICE: 12/23/2016 This 71-year-old gentleman who was admitted with COPD acute exacerbation as well as pneumonia, also had pleural effusion. Dr. Rene performed a thoracentesis, final report pending at this time. No chest pain or palpitations. No fever. The patient is also mildly weak. On exam, alert, oriented x3. Pulse 100, blood pressure 130/76, respirations 18, temperature 98.4, pulse ox 94% on 2 L. HEENT: Conjunctivae normal. CARDIOVASCULAR: S1 and S2 muffled. LUNGS: Breath sounds diminished at the bases. Few scattered rhonchi. ABDOMEN: Soft, nontender. EXTREMITIES: No swelling. Diffusely weak. LABS: WBC 23.2, hemoglobin is 10.6, calcium is 8.2. ASSESSMENT: 1. Chronic obstructive pulmonary disease acute exacerbation with possibly community-acquired pneumonia on the left with left parapneumonic effusion. Rule out malignancy. Status post left thoracentesis, pathology pending. 2. History of chronic intermittent asthma and chronic obstructive pulmonary disease. 3. Gastroesophageal reflux disease. 4. Hypertension. 5. History of pneumonia. 6. History of degenerative joint disease. 7. Bipolar, depression, schizophrenia, not otherwise specified. 8. Continued ongoing nicotine dependence. 9. Hyperlipidemia. 10. FULL CODE. RECOMMENDATIONS/DISCUSSION: Recommend to continue current medications, continue with monitoring and symptomatic treatment. Otherwise, at this time I would recommend to continue with bronchodilators and empiric antibiotics as well as steroids. I would recommend taper the steroids to 40 mg IV every 8 hours. Continue to monitor. Await pleural aspiration reports. Closely follow with Dr. Rene. Further recommendations to follow.
[2016-12-24 11:28] LABS: Glucose,Whole Blood 146 mg/dL (75-99)
--- NOTE | 2016-12-24 11:38 | P.PN ---
Subjective Progress note dated 12/24/2016 This is a 71-year-old male who is status post thoracentesis. Dr. Bates was very have thoracic surgery see the patient should his ultrasound show a loculated her complex pleural effusion. Apparently a does. Surgery will be consulted. The patient's clinically doing well though. No major complaints. Not producing any phlegm but not a particularly good historian. Denies any chest pain or chest discomfort. Not acutely short of breath. Not coughing up any phlegm. No fever no chills. No nausea vomiting or diarrhea. Objective - Vital Signs Vital signs: Vital Signs Temp 97.7 F 12/24/16 07:00 Pulse 104 H 12/24/16 07:30 Resp 18 12/24/16 07:00 BP 153/80 12/24/16 07:00 Pulse Ox 92 L 12/24/16 07:00 Intake & Output 12/23/16 12/24/16 12/24/16 18:59 06:59 18:59 Intake Total 380 Output Total 225 Balance -225 380 Intake: Intake, IV Titration 140 Amount Sodium Chloride 0.9% 1, 140 000 ml @ 20 mls/hr IV . Q24H PHONG Rx#:[id number] Oral 240 Output: Urine 225 Other: Voiding Method Urinal Urinal Diaper Diaper # Voids 1 3 # Bowel Movements 1 - Exam No acute distress, oriented 2. HEENT examination is grossly unremarkable. Mucous membranes are moist. No oral lesions. Neck supple. Full range of motion. No adenopathy. Cardiovascular examination reveals regular rhythm rate. S1-S2 normal. Lungs reveal diminished breath sounds throughout. A few scattered rhonchi. No wheezes or crackles. Abdomen soft bowel sounds are heard. Extremities are intact. - Labs CBC & Chem 7: 12/24/16 07:58 12/24/16 07:58 Labs: Abnormal Lab Results - Last 24 Hours (Table) 12/23/16 12/23/16 12/24/16 Range/Units 17:14 20:13 07:13 WBC (3.8-10.6) k/uL RBC (4.30-5.90) m/uL Hgb (13.0-17.5) gm/dL Hct (39.0-53.0) % MCHC (31.0-37.0) g/dL Neutrophils # (1.3-7.7) k/uL Lymphocytes # (1.0-4.8) k/uL Glucose (74-99) mg/dL POC Glucose (mg/dL) 129 H 154 H 107 H (75-99) mg/dL 12/24/16 12/24/16 12/24/16 Range/Units 07:58 07:58 11:27 WBC 22.7 H (3.8-10.6) k/uL RBC 4.00 L (4.30-5.90) m/uL Hgb 11.5 L (13.0-17.5) gm/dL Hct 37.1 L (39.0-53.0) % MCHC 30.9 L (31.0-37.0) g/dL Neutrophils # 21.1 H (1.3-7.7) k/uL Lymphocytes # 0.6 L (1.0-4.8) k/uL Glucose 110 H (74-99) mg/dL POC Glucose (mg/dL) 146 H (75-99) mg/dL Microbiology - Last 24 Hours (Table) 12/21/16 15:45 Gram Stain - Preliminary Pleural Fluid Body Fluid Culture - Preliminary 12/21/16 15:10 Blood Culture - Preliminary Blood No Growth after 48 hours Assessment and Plan (1) Pneumonia Status: Acute (2) Parapneumonic effusion Status: Acute (3) COPD (chronic obstructive pulmonary disease) Status: Acute (4) Hyperlipidemia Status: Acute (5) GERD (gastroesophageal reflux disease) Status: Acute Plan: plan dated 12/24/2016. The patient appears to have a complicated left-sided effusion. The patient will have thoracic surgery see them. We'll continue to follow. We'll follow up on the cytology from the thoracentesis. Additional recommendations suggestions are forthcoming. The patient will continue on antibiotics breathing treatments and the like. Time with Patient: Less than 30
[2016-12-24] MEDS ORDERED: RX INFO: IV CONTRAST WAS GIVEN 1 EACH MISC MISCELLANE PRN (11:39)
--- NOTE | 2016-12-24 14:35 | P.GSCN ---
<Claire Franklin - Last Filed: 12/24/16 14:34> History of Present Illness Consult date: 12/24/16 Reason for Consult: Left loculated pleural effusion, status post left thoracentesis on 12/21/2016 with drainage of 550 mL pleural fluid. Requesting physician: Alonso Mitchell History of present illness: This 71-year-old male [facility] with complaints of cough, weakness, subjective fever 2 weeks. He was presumed to have community-acquired pneumonia, was treated with antibiotics, but despite decreasing white blood cell count he didn't appear to be getting any better. Chest x-ray and CT done at that hospital revealed pleural effusion. He was subsequently transferred to [facility] for further treatment. Pulmonology continued treatment with steroids, antibiotics, and respiratory treatments. Dr. Rene performed a left sided thoracentesis on 12/21 with drainage of 550 mL presumed exudative fluid. Chest ultrasound performed this morning demonstrated continued loculated pleural effusion. Thoracic surgery was consulted for possible surgical intervention. Review of Systems 14 point review of systems completed and negative except as noted. It should be noted that patient is a poor historian. - Constitutional Reports as per HPI - Respiratory Reports as per HPI Past Medical History Past Medical History: Asthma, COPD, GERD/Reflux, Hyperlipidemia, Pneumonia Additional Past Medical History / Comment(s): DJD, arthritis shoulders, past L leg fx-limps and one leg shorter. History of Any Multi-Drug Resistant Organisms: None Reported Past Surgical History: Appendectomy, Orthopedic Surgery, Tonsillectomy Additional Past Surgical History / Comment(s): L hip repair after fx, deviated septal surgery, hemorrhoidectomy, colonoscopy. Past Anesthesia/Blood Transfusion Reactions: No Reported Reaction Past Psychological History: Bipolar, Depression, Schizophrenia Additional Psychological History / Comment(s): Pt resides at [facility]. He has paranoid schizophrenia. He uses no assistive device. He uses the bus system. He states he is thinking about moving. Smoking Status: Current every day smoker Past Alcohol Use History: None Reported Additional Past Alcohol Use History / Comment(s): Pt states he smokes one cigarette a day. He started smoking in 1966. He states he used to drink occasionally but has had nothing to drink in 6 months. Past Drug Use History: Cocaine Additional Drug Use History / Comment(s): Pt states he used to use cocaine but quit that in 1991. - Past Family History Father Family Medical History: No Reported History Additional Family Medical History / Comment(s): Father was healthy and at the age of 83 yrs. Mother Family Medical History: No Reported History Additional Family Medical History / Comment(s): Mother was healthy and in her mid 80's. Medications and Allergies Home Medications Medication Instructions Recorded Confirmed Type Acetaminophen Tab [Tylenol] 500 - 1,000 mg PO Q6HR PRN 12/21/16 12/21/16 History Aspirin 81 mg PO DAILY 12/21/16 12/21/16 History Atorvastatin Calcium [Lipitor] 10 mg PO DAILY 12/21/16 12/21/16 History Benztropine Mesylate 0.5 mg PO BID 12/21/16 12/21/16 History Calcium Carb-Vit D 500Mg-200Un 1 cap PO DAILY 12/21/16 12/21/16 History [Oscal 500+D] Diltiazem Cd [Cardizem CD] 120 mg PO DAILY 12/21/16 12/21/16 History Divalproex Sodium [Divalproex 500 mg PO BID 12/21/16 12/21/16 History Sodium ER] Docusate [Colace] 100 mg PO DAILY 12/21/16 12/21/16 History Ferrous Sulfate [Iron (65 MG 325 mg PO DAILY 12/21/16 12/21/16 History Elemental)] Ipratropium Nebulized [Atrovent 0.5 mg INHALATION RT-Q6H PRN 12/21/16 12/21/16 History Nebulized] Lisinopril [Zestril] 2.5 mg PO DAILY 12/21/16 12/21/16 History Montelukast [Singulair] 10 mg PO HS 12/21/16 12/21/16 History Multivitamins, Thera [Multivitamin 1 tab PO DAILY 12/21/16 12/21/16 History (formulary)] Ranitidine HCl 150 mg PO BID 12/21/16 12/21/16 History Thiamine [Vitamin B-1] 100 mg PO DAILY 12/21/16 12/21/16 History cloZAPine [Clozaril] 75 mg PO QAM 12/21/16 12/21/16 History cloZAPine [Clozaril] 100 mg PO QAM 12/21/16 12/21/16 History cloZAPine [Clozaril] 200 mg PO HS 12/21/16 12/21/16 History fluPHENAZine DECANOATE [Prolixin 1 dose IM Q21D 12/21/16 12/21/16 History Decanoate] Allergies Allergy/AdvReac Type Severity Reaction Status Date / Time bee pollen Allergy Anaphylaxis Verified 12/21/16 14:16 Surgical - Exam Vital Signs Temp Pulse Resp BP Pulse Ox 99.5 F 101 H 20 160/79 92 L 12/21/16 13:37 12/21/16 13:37 12/21/16 13:37 12/21/16 13:37 12/21/16 13:37 - General well developed, well nourished, no distress, no pain - Eyes PERRL, normal ocular movement - ENT poor halfway - Neck no masses, no bruits, trachea midline - Respiratory Lung sounds very diminished bilaterally, coarse breath sounds heard bilateral bases left greater than right. Currently on 3 L nasal cannula. - Cardiovascular S1, S2 present. Regular rate and rhythm. No edema present. Palpable pulses present bilaterally. - Abdomen Abdomen: soft, non tender, bowel sounds - Genitourinary Voiding clear, yellow urine per urinal. - Integumentary no rash - Neurologic normal coordination, normal sensation - Psychiatric oriented to time, oriented to person, oriented to place, speech is normal Results - Labs 12/24/16 07:58 12/24/16 07:58 Abnormal Lab Results - Last 24 Hours (Table) 12/23/16 12/23/16 12/24/16 Range/Units 17:14 20:13 07:13 WBC (3.8-10.6) k/uL RBC (4.30-5.90) m/uL Hgb (13.0-17.5) gm/dL Hct (39.0-53.0) % MCHC (31.0-37.0) g/dL Neutrophils # (1.3-7.7) k/uL Lymphocytes # (1.0-4.8) k/uL Glucose (74-99) mg/dL POC Glucose (mg/dL) 129 H 154 H 107 H (75-99) mg/dL 12/24/16 12/24/16 12/24/16 Range/Units 07:58 07:58 11:27 WBC 22.7 H (3.8-10.6) k/uL RBC 4.00 L (4.30-5.90) m/uL Hgb 11.5 L (13.0-17.5) gm/dL Hct 37.1 L (39.0-53.0) % MCHC 30.9 L (31.0-37.0) g/dL Neutrophils # 21.1 H (1.3-7.7) k/uL Lymphocytes # 0.6 L (1.0-4.8) k/uL Glucose 110 H (74-99) mg/dL POC Glucose (mg/dL) 146 H (75-99) mg/dL Microbiology - Last 24 Hours (Table) 12/21/16 15:45 Gram Stain - Preliminary Pleural Fluid Body Fluid Culture - Preliminary 12/21/16 15:10 Blood Culture - Preliminary Blood No Growth after 48 hours Diabetes panel 12/24/16 Range/Units 07:58 Sodium 143 (137-145) mmol/L Potassium 4.9 (3.5-5.1) mmol/L Chloride 104 (98-107) mmol/L Carbon Dioxide 29 (22-30) mmol/L BUN 20 (9-20) mg/dL Creatinine 0.67 (0.66-1.25) mg/dL Glucose 110 H (74-99) mg/dL Calcium 8.7 (8.4-10.2) mg/dL Calcium panel 12/24/16 Range/Units 07:58 Calcium 8.7 (8.4-10.2) mg/dL Pituitary panel 12/24/16 Range/Units 07:58 Sodium 143 (137-145) mmol/L Potassium 4.9 (3.5-5.1) mmol/L Chloride 104 (98-107) mmol/L Carbon Dioxide 29 (22-30) mmol/L BUN 20 (9-20) mg/dL Creatinine 0.67 (0.66-1.25) mg/dL Glucose 110 H (74-99) mg/dL Calcium 8.7 (8.4-10.2) mg/dL Adrenal panel 12/24/16 Range/Units 07:58 Sodium 143 (137-145) mmol/L Potassium 4.9 (3.5-5.1) mmol/L Chloride 104 (98-107) mmol/L Carbon Dioxide 29 (22-30) mmol/L BUN 20 (9-20) mg/dL Creatinine 0.67 (0.66-1.25) mg/dL Glucose 110 H (74-99) mg/dL Calcium 8.7 (8.4-10.2) mg/dL - Imaging Chest x-ray: report reviewed, image reviewed Assessment and Plan (1) COPD (chronic obstructive pulmonary disease) Status: Acute (2) Loculated pleural effusion Status: Acute Plan: 1. Continue antibiotics, steroids, respiratory treatments per pulmonology recommendations. 2. CT of chest with contrast ordered by pulmonology, will review when completed. 3. Encourage incentive spirometry. 4. Will review diagnostics and plan with thoracic surgeon for surgical intervention versus continued conservative treatment. Time with Patient: Greater than 30 <Ranjith Sanderson - Last Filed: 12/24/16 15:59> Surgical - Exam Vital Signs Temp Pulse Resp BP Pulse Ox 99.5 F 101 H 20 160/79 92 L 12/21/16 13:37 12/21/16 13:37 12/21/16 13:37 12/21/16 13:37 12/21/16 13:37 Results - Labs 12/24/16 07:58 12/24/16 07:58 Abnormal Lab Results - Last 24 Hours (Table) 12/23/16 12/23/16 12/24/16 Range/Units 17:14 20:13 07:13 WBC (3.8-10.6) k/uL RBC (4.30-5.90) m/uL Hgb (13.0-17.5) gm/dL Hct (39.0-53.0) % MCHC (31.0-37.0) g/dL Neutrophils # (1.3-7.7) k/uL Lymphocytes # (1.0-4.8) k/uL Glucose (74-99) mg/dL POC Glucose (mg/dL) 129 H 154 H 107 H (75-99) mg/dL 12/24/16 12/24/16 12/24/16 Range/Units 07:58 07:58 11:27 WBC 22.7 H (3.8-10.6) k/uL RBC 4.00 L (4.30-5.90) m/uL Hgb 11.5 L (13.0-17.5) gm/dL Hct 37.1 L (39.0-53.0) % MCHC 30.9 L (31.0-37.0) g/dL Neutrophils # 21.1 H (1.3-7.7) k/uL Lymphocytes # 0.6 L (1.0-4.8) k/uL Glucose 110 H (74-99) mg/dL POC Glucose (mg/dL) 146 H (75-99) mg/dL Microbiology - Last 24 Hours (Table) 12/21/16 15:45 Gram Stain - Preliminary Pleural Fluid Body Fluid Culture - Preliminary 12/21/16 15:10 Blood Culture - Preliminary Blood No Growth after 48 hours Diabetes panel 12/24/16 Range/Units 07:58 Sodium 143 (137-145) mmol/L Potassium 4.9 (3.5-5.1) mmol/L Chloride 104 (98-107) mmol/L Carbon Dioxide 29 (22-30) mmol/L BUN 20 (9-20) mg/dL Creatinine 0.67 (0.66-1.25) mg/dL Glucose 110 H (74-99) mg/dL Calcium 8.7 (8.4-10.2) mg/dL Calcium panel 12/24/16 Range/Units 07:58 Calcium 8.7 (8.4-10.2) mg/dL Pituitary panel 12/24/16 Range/Units 07:58 Sodium 143 (137-145) mmol/L Potassium 4.9 (3.5-5.1) mmol/L Chloride 104 (98-107) mmol/L Carbon Dioxide 29 (22-30) mmol/L BUN 20 (9-20) mg/dL Creatinine 0.67 (0.66-1.25) mg/dL Glucose 110 H (74-99) mg/dL Calcium 8.7 (8.4-10.2) mg/dL Adrenal panel 12/24/16 Range/Units 07:58 Sodium 143 (137-145) mmol/L Potassium 4.9 (3.5-5.1) mmol/L Chloride 104 (98-107) mmol/L Carbon Dioxide 29 (22-30) mmol/L BUN 20 (9-20) mg/dL Creatinine 0.67 (0.66-1.25) mg/dL Glucose 110 H (74-99) mg/dL Calcium 8.7 (8.4-10.2) mg/dL Assessment and Plan Plan: The patient was examined. His chart was reviewed. Computed tomography scan was reviewed. CT of the chest clearly demonstrates bilateral pleural effusions, much larger on the left than the right. I recommended to the patient that we consider placement of a right Pleurx catheter for management of his large loculated right pleural effusion. Patient asked appropriate questions. He appears willing to proceed with surgery. Due to the patient's mental illness we will contact his next of kin for consent for the surgery.
--- NOTE | 2016-12-24 14:40 | CT ---
EXAMINATION TYPE: CT chest w con DATE OF EXAM: 12/24/2016 2:24 PM COMPARISON: NONE HISTORY: Patient poor historian CT DLP: 743 mGycm Automated exposure control for dose reduction was used. CONTRAST: CT scan of the chest is performed with IV Contrast, patient injected with 100 mL of Omnipaque 300. FINDINGS: LUNGS: There is a large loculated left-sided pleural effusion which extends from nearly the left lung apex through the base of the left lung. The effusion measures approximately 18.4 cm craniocaudal dim ension and at its largest AP dimension at the left lung base of 15.4 cm. Small right-sided pleural ef fusion measures 2.9 cm in AP dimension. There is left lower lobe volume loss. Mild right basilar comp ressive atelectasis. MEDIASTINUM: There are no greater than 1 cm hilar or mediastinal lymph nodes. No pericardial effusi on is seen. Thoracic aorta is of normal caliber. The heart is not enlarged. There is a small 6 mm pe ricardial effusion. UPPER ABDOMEN: No significant abnormality appreciated. OTHER: No additional significant abnormality is seen. IMPRESSION: 1. Large loculated left-sided pleural effusion with left lower lobe volume loss. Smaller right-sided pleural effusion and right basilar compressive atelectasis.
[2016-12-24] MEDS: SODIUM CHLORIDE 0.9% 1,000 ML IV SCH (15:17)
[2016-12-24] MEDS: THIAMINE 100 MG TAB PO SCH (15:18)
[2016-12-24] MEDS: FERROUS SULFATE 325 MG TAB PO SCH (15:18)
[2016-12-24] MEDS: CALCIUM CARB-VIT D 500MG-200UN 1 EACH TAB PO SCH (15:18)
[2016-12-24] MEDS: MULTIVITAMINS, THERA 1 EACH TAB PO SCH (15:18)
--- NOTE | 2016-12-24 16:25 | P.PN ---
Subjective Date of service 12/24/2016. Progress note being dictated for Dr. Mccrary. Interval history: This a 71-year-old gentleman admitted with acute COPD exacerbation, left lower lobe pneumonia, ruling out malignancy, pleural effusion , status post thoracentesis and multiple other medical issues. Pleural cytology pending. Evaluated by cardiothoracic surgery regarding complex loculated pleural effusion reported on chest ultrasound. Chest CT reported large loculated left-sided pleural effusion with left lower lobe fine loss, smaller right-sided pleural effusion and right basilar compressive atelectasis. Maintained on nebulized bronchodilators, systemic steroids, and antibiotics. Pleasantly confused. Denies any chest pain, palpitations or increasing shortness of breath. Review systems unable to obtain as patient not a good historian and pleasantly confused. Active Medications Acetaminophen (Tylenol Tab) 650 mg PO Q6HR PRN PRN Reason: Mild Pain or Fever > 100.5 Hydrocodone Bitart/Acetaminophen ([place] 5-325) 1 each PO Q4HR PRN PRN Reason: Moderate Pain Last Admin: 12/21/16 20:45 Dose: 1 each Alprazolam (Xanax) 0.25 mg PO Q6HR PRN PRN Reason: Anxiety Aspirin (Aspirin) 81 mg PO DAILY [facility] Last Admin: 12/24/16 09:23 Dose: 81 mg Atorvastatin Calcium (Lipitor) 10 mg PO DAILY [facility] Last Admin: 12/24/16 09:24 Dose: 10 mg Benztropine Mesylate (Cogentin) 0.5 mg PO BID [facility] Last Admin: 12/24/16 09:24 Dose: 0.5 mg Budesonide (Pulmicort) 1 mg INHALATION RT-BID [facility] Last Admin: 12/24/16 07:07 Dose: 1 mg Calcium Carbonate (Oscal 500+D) 1 each PO DAILY@1200 [facility] Last Admin: 12/24/16 15:18 Dose: 1 each Clozapine (Clozaril) 75 mg PO QAM [facility] Stop: 12/26/16 23:00 Last Admin: 12/24/16 09:24 Dose: 75 mg Clozapine (Clozaril) 100 mg PO QAM [facility] Stop: 12/26/16 23:00 Last Admin: 12/24/16 09:25 Dose: 100 mg Clozapine (Clozaril) 200 mg PO HS [facility] Stop: 12/26/16 23:00 Last Admin: 12/23/16 21:28 Dose: 200 mg Diltiazem HCl (Cardizem Cd) 120 mg PO DAILY [facility] Last Admin: 12/24/16 09:25 Dose: 120 mg Divalproex Sodium (Depakote Er) 500 mg PO BID [facility] Last Admin: 12/24/16 09:25 Dose: 500 mg Docusate Sodium (Colace) 100 mg PO DAILY [facility] Last Admin: 12/24/16 09:25 Dose: 100 mg Famotidine (Pepcid) 20 mg PO BID [facility] Last Admin: 12/24/16 09:25 Dose: 20 mg Ferrous Sulfate (Feosol) 325 mg PO DAILY@1200 [facility] Last Admin: 12/24/16 15:18 Dose: 325 mg Fluphenazine Decanoate (Prolixin Decanoate) 25 mg IM Q21D [facility] Formoterol Fumarate (Perforomist) 20 mcg INHALATION RT-BID [facility] Last Admin: 12/24/16 07:07 Dose: 20 mcg Heparin Sodium (Porcine) (Heparin) 5,000 unit SQ Q12HR [facility] Last Admin: 12/24/16 09:26 Dose: 5,000 unit Piperacillin/Tazobactam/ (Dextrose 3.375 gm/ IV Solution) 50 mls @ 12.5 mls/hr IVPB Q8HR [facility] Last Admin: 12/24/16 15:19 Dose: 12.5 mls/hr Sodium Chloride (Saline 0.9%) 1,000 mls @ 20 mls/hr IV .Q24H [facility] Last Admin: 12/24/16 15:17 Dose: Not Given Insulin Human Lispro (Humalog) 0 unit SQ ACHS [facility] PRN Reason: Protocol Last Admin: 12/24/16 15:17 Dose: Not Given Ipratropium [place] (Atrovent Nebulized) 0.5 mg INHALATION RT-QID [facility] Last Admin: 12/24/16 15:51 Dose: 0.5 mg Levalbuterol HCl (Xopenex Nebulized (Conc)) 1.25 mg INHALATION RT-QID [facility] Last Admin: 12/24/16 15:51 Dose: 1.25 mg Lisinopril (Zestril) 2.5 mg PO DAILY [facility] Last Admin: 12/24/16 09:26 Dose: 2.5 mg Methylprednisolone Sodium Succinate (Solu-Medrol) 40 mg IV Q8HR [facility] Last Admin: 12/24/16 09:07 Dose: 40 mg Miscellaneous Information (Rx Info: Iv Contrast Was Given) 1 each MISCELLANE DAILY PRN PRN Reason: Per Protocol Stop: 12/26/16 11:40 Montelukast Sodium (Singulair) 10 mg PO HS [facility] Last Admin: 12/23/16 21:29 Dose: 10 mg Multivitamins (Theragran) 1 each PO DAILY@1200 [facility] Last Admin: 12/24/16 15:18 Dose: 1 each Naloxone HCl (Narcan) 0.2 mg IV Q2M PRN PRN Reason: Opioid Reversal Temazepam (Restoril) 15 mg PO HS PRN PRN Reason: Insomnia Thiamine HCl (Vitamin B-1) 100 mg PO DAILY@1200 [facility] Last Admin: 12/24/16 15:18 Dose: 100 mg Objective - Vital Signs Vital signs: Vital Signs Temp 97.8 F 12/24/16 15:00 Pulse 92 12/24/16 15:00 Resp 18 12/24/16 15:00 BP 156/82 12/24/16 15:00 Pulse Ox 93 L 12/24/16 15:00 Intake & Output 12/23/16 12/24/16 12/24/16 18:59 06:59 18:59 Intake Total 380 Output Total 225 Balance -225 380 Intake: Intake, IV Titration 140 Amount Sodium Chloride 0.9% 1, 140 000 ml @ 20 mls/hr IV . Q24H [facility] Rx#:[id number] Oral 240 Output: Urine 225 Other: Voiding Method Urinal Urinal Diaper Diaper # Voids 1 3 # Bowel Movements 1 - Exam PHYSICAL EXAM: VITAL SIGNS: As above GENERAL: [Lying in bed, tired appearing] HEENT: [Pupils equal conjunctiva normal, poor dentition.] NECK: [Supple, no JVD] RESPIRATORY EFFORT:[Increased] LUNGS: [Diminished, with scattered rhonchi] CARDIOVASCULAR[regular S1 and S2, no murmur rub or gallop, no edema] GI: [Abdomen soft, nontender, positive bowel sounds.] PSYCH: [Alert and oriented -2, pleasantly confused] NEURO: No focal deficits, moves all 4 extremities, strength and sensation grossly intact - Labs CBC & Chem 7: 12/24/16 07:58 12/24/16 07:58 Labs: Abnormal Lab Results - Last 24 Hours (Table) 12/23/16 12/23/16 12/24/16 Range/Units 17:14 20:13 07:13 WBC (3.8-10.6) k/uL RBC (4.30-5.90) m/uL Hgb (13.0-17.5) gm/dL Hct (39.0-53.0) % MCHC (31.0-37.0) g/dL Neutrophils # (1.3-7.7) k/uL Lymphocytes # (1.0-4.8) k/uL Glucose (74-99) mg/dL POC Glucose (mg/dL) 129 H 154 H 107 H (75-99) mg/dL 12/24/16 12/24/16 12/24/16 Range/Units 07:58 07:58 11:27 WBC 22.7 H (3.8-10.6) k/uL RBC 4.00 L (4.30-5.90) m/uL Hgb 11.5 L (13.0-17.5) gm/dL Hct 37.1 L (39.0-53.0) % MCHC 30.9 L (31.0-37.0) g/dL Neutrophils # 21.1 H (1.3-7.7) k/uL Lymphocytes # 0.6 L (1.0-4.8) k/uL Glucose 110 H (74-99) mg/dL POC Glucose (mg/dL) 146 H (75-99) mg/dL Microbiology - Last 24 Hours (Table) 12/21/16 15:45 Gram Stain - Preliminary Pleural Fluid Body Fluid Culture - Preliminary 12/21/16 15:10 Blood Culture - Preliminary Blood No Growth after 48 hours Assessment and Plan Plan: 1. Acute exacerbation COPD with (pneumonia, possible community-acquired with left parapneumonic effusion, rule out malignancy. Status post left thoracentesis. Cytology pending. Loculated left pleural effusion. 2. History of chronic intermittent asthma, COPD 3. [Gastroesophageal reflux disease]. 4. [Hypertension]. 5. [History of pneumonia]. 6. [Degenerative joint disease]. 7. [Bipolar, depression, schizophrenia]. 8. Continued ongoing nicotine dependence 9. Hyperlipidemia Plan: Continue on current medication regime , nebulized bronchodilators, broad- spectrum IV antibiotics, steroids, monitoring and symptomatic treatment. Pleural cytology pending. Smoking cessation readdressed. Evaluated by cardiothoracic surgery regarding loculated pleural effusion with recommendations pending regarding surgical intervention versus conservative treatment .further recommendations to follow. The impression and plan of care has been dictated as directed. : I performed a H&P examination of this patient and discussed the same with the dictator. I agree with the dictator's note. Any additional findings/opinions/ etc. will be noted.
[2016-12-24 16:59] LABS: Glucose,Whole Blood 132 mg/dL (75-99)
[2016-12-24 20:15] LABS: Glucose,Whole Blood 126 mg/dL (75-99)
[2016-12-24] MEDS: MONTELUKAST 10 MG TAB PO SCH (20:21)
[2016-12-25] MEDS: PIPERACILLIN-TAZOBACTAM 3.375 GM in DEXTROSE/WATER 1 50ML.BAG IVPB SCH ×4 (00:02→23:14)
[2016-12-25] MEDS: methylPREDNISolone SOD SUCCI 40 MG/ML 1 ML VIAL IV SCH ×4 (00:02→23:15)
[2016-12-25 06:55] LABS: Glucose,Whole Blood 122 mg/dL (75-99)
[2016-12-25] MEDS: BUDESONIDE 1 MG/2 ML NEBU INHALATION SCH ×2 (07:18→19:30)
[2016-12-25] MEDS: LEVALBUTEROL NEB (CONC) 1.25 MG/0.5 ML AMP INHALATION SCH ×4 (07:18→19:30)
[2016-12-25] MEDS: IPRATROPIUM 0.5 MG/2.5 ML NEBU INHALATION SCH ×4 (07:18→19:30)
[2016-12-25] MEDS: FORMOTEROL FUMARATE 20 MCG/2 ML NEBU INHALATION SCH ×2 (07:18→19:30)
--- NOTE | 2016-12-25 07:44 | PN ---
DATE OF SERVICE: 12/24/2016 This 71-year-old gentleman who was admitted with COPD acute exacerbation as well as also had possible left parapneumonic effusion. The patient also had chest CAT scan. Seen and evaluated the patient along with the nurse practitioner. Please refer to nurse practitioner notes and impression documented for further information. Otherwise, Dr. Sanderson from cardiothoracic service is planning PleurX catheter management. Prognosis guarded. Further recommendations to follow.
--- NOTE | 2016-12-25 07:51 | P.PN ---
Subjective Principal diagnosis: Large left loculated pleural effusion, status post left thoracentesis on 2016 Patient is currently sitting up in bed in no apparent distress. No questions at this time. Objective - Vital Signs Vital signs: Vital Signs Temp 98.3 F 12/24/16 22:24 Pulse 74 12/25/16 07:44 Resp 20 12/24/16 22:24 BP 145/73 12/24/16 22:24 Pulse Ox 93 L 12/25/16 07:21 Intake & Output 12/24/16 12/25/16 12/25/16 18:59 06:59 18:59 Intake Total 480 Balance 480 Intake: Oral 480 Other: Voiding Method Urinal Urinal Diaper Diaper # Voids 4 3 - Constitutional General appearance: Present: cooperative, no acute distress - Respiratory Details: Lungs sounds diminished bilaterally with crackles in bilateral bases, left greater than right. Respirations even, nonlabored. Currently on 3 L nasal cannula. - Cardiovascular Details: S1, S2 present. Regular rate and rhythm. No edema present. - Gastrointestinal Gastrointestinal Comment(s): Abdomen soft, nontender, nondistended. Hyperactive bowel sounds present. Nothing by mouth since midnight. - Genitourinary Genitourinary Comment(s): Incontinent, wearing adult brief. - Musculoskeletal Musculoskeletal: Present: strength equal bilaterally - Psychiatric Psychiatric: Present: A&O x's 3 - Allied health notes Allied health notes reviewed: nursing - Labs CBC & Chem 7: 12/24/16 07:58 12/24/16 07:58 Labs: Abnormal Lab Results - Last 24 Hours (Table) 12/24/16 12/24/16 12/24/16 Range/Units 07:58 07:58 11:27 WBC 22.7 H (3.8-10.6) k/uL RBC 4.00 L (4.30-5.90) m/uL Hgb 11.5 L (13.0-17.5) gm/dL Hct 37.1 L (39.0-53.0) % MCHC 30.9 L (31.0-37.0) g/dL Neutrophils # 21.1 H (1.3-7.7) k/uL Lymphocytes # 0.6 L (1.0-4.8) k/uL Glucose 110 H (74-99) mg/dL POC Glucose (mg/dL) 146 H (75-99) mg/dL 12/24/16 12/24/16 12/25/16 Range/Units 16:58 20:13 06:53 WBC (3.8-10.6) k/uL RBC (4.30-5.90) m/uL Hgb (13.0-17.5) gm/dL Hct (39.0-53.0) % MCHC (31.0-37.0) g/dL Neutrophils # (1.3-7.7) k/uL Lymphocytes # (1.0-4.8) k/uL Glucose (74-99) mg/dL POC Glucose (mg/dL) 132 H 126 H 122 H (75-99) mg/dL Microbiology - Last 24 Hours (Table) 12/21/16 15:10 Blood Culture - Preliminary Blood No Growth after 72 hours 12/21/16 15:45 Gram Stain - Preliminary Pleural Fluid Body Fluid Culture - Preliminary - Imaging and Cardiology CT scan - chest: report reviewed, image reviewed Assessment and Plan (1) COPD (chronic obstructive pulmonary disease) Status: Acute (2) Loculated pleural effusion Status: Acute Plan: 1. Continue antibiotics, steroids, respiratory treatments per pulmonology recommendations. 2. Encourage incentive spirometry. 3. Scheduled for left Pleurx catheter placement this afternoon. 4. More recommendations as patient progresses. Time with Patient: Greater than 30
[2016-12-25 08:39] LABS: Basophils % (A) 0 %; CH 29.6; CHCM 31.9; Eosinophils % (A) 0 %; HCT 32.5 % (39.0-53.0); HGB 10.1 gm/dL (13.0-17.5); Luc % (Auto) 1; Lymphocytes # (A) 0.4 k/uL (1.0-4.8); Lymphocytes % (A) 3 %; MCH 28.9 pg (25.0-35.0); MCHC 31.1 g/dL (31.0-37.0); Mean Platelet Volume 7.2; Monocytes # (A) 0.7 k/uL (0-1.0); Monocytes % (A) 5 %; Neutrophils % (A) 91 %; RBC 3.49 m/uL (4.30-5.90); RDW 13.3 % (11.5-15.5); WBC 13.2 k/uL (3.8-10.6); WBC (Perox) 15.19
[2016-12-25 08:51] LABS: Anion Gap 4 mmol/L; Blood Urea Nitrogen 19 mg/dL (9-20); Calcium 8.2 mg/dL (8.4-10.2); Carbon Dioxide 30 mmol/L (22-30); Chloride 105 mmol/L (98-107); Glucose 104 mg/dL (74-99); Non-African American GFR(MDRD) >60 (>60 ml/min/1.73 sqM); Potassium 4.8 mmol/L (3.5-5.1); Sodium 139 mmol/L (137-145)
[2016-12-25] MEDS: INSULIN LISPRO (humaLOG) 300 UNIT/3 ML VIAL SQ SCH ×4 (08:54→20:25)
[2016-12-25 11:12] LABS: Glucose,Whole Blood 102 mg/dL (75-99)
--- NOTE | 2016-12-25 11:56 | P.PN ---
Subjective Progress note dated 12/24/2016 This is a 71-year-old male who is status post thoracentesis. Dr. Bates was very have thoracic surgery see the patient should his ultrasound show a loculated her complex pleural effusion. Apparently a does. Surgery will be consulted. The patient's clinically doing well though. No major complaints. Not producing any phlegm but not a particularly good historian. Denies any chest pain or chest discomfort. Not acutely short of breath. Not coughing up any phlegm. No fever no chills. No nausea vomiting or diarrhea. Progress note dated 12/25/2016 This is a 71-year-old male who I asked thoracic surgery to see. He status post thoracentesis done by my partner. His ultrasound, suggested a complex no effusion on the left side. Dr. Sanderson will see the patient consider a VATS procedure for a loculated effusion. From a clinical standpoint he is doing reasonably well. No major complaints. A little short of breath and but not significantly so. Coughing a bit. Not producing much phlegm. No fever no chills. No chest pain. No chest discomfort. Objective - Vital Signs Vital signs: Vital Signs Temp 96.0 F L 12/25/16 07:00 Pulse 76 12/25/16 11:20 Resp 18 12/25/16 07:00 BP 168/65 12/25/16 07:00 Pulse Ox 93 L 12/25/16 07:21 Intake & Output 12/24/16 12/25/16 12/25/16 18:59 06:59 18:59 Intake Total 480 Output Total 300 Balance 480 -300 Intake: Oral 480 Output: Urine 300 Other: Voiding Method Urinal Urinal Diaper Diaper # Voids 4 3 - Exam No acute distress, oriented 2. HEENT examination is grossly unremarkable. Mucous membranes are moist. No oral lesions. Neck supple. Full range of motion. No adenopathy. Cardiovascular examination reveals regular rhythm rate. S1-S2 normal. Lungs reveal diminished breath sounds throughout. A few scattered rhonchi. No wheezes or crackles. Abdomen soft bowel sounds are heard. Extremities are intact. - Labs CBC & Chem 7: 12/25/16 08:19 12/25/16 08:19 Labs: Abnormal Lab Results - Last 24 Hours (Table) 12/24/16 12/24/16 12/25/16 Range/Units 16:58 20:13 06:53 WBC (3.8-10.6) k/uL RBC (4.30-5.90) m/uL Hgb (13.0-17.5) gm/dL Hct (39.0-53.0) % Neutrophils # (1.3-7.7) k/uL Lymphocytes # (1.0-4.8) k/uL Glucose (74-99) mg/dL POC Glucose (mg/dL) 132 H 126 H 122 H (75-99) mg/dL Calcium (8.4-10.2) mg/dL 12/25/16 12/25/16 12/25/16 Range/Units 08:19 08:19 11:10 WBC 13.2 H (3.8-10.6) k/uL RBC 3.49 L (4.30-5.90) m/uL Hgb 10.1 L (13.0-17.5) gm/dL Hct 32.5 L (39.0-53.0) % Neutrophils # 12.0 H (1.3-7.7) k/uL Lymphocytes # 0.4 L (1.0-4.8) k/uL Glucose 104 H (74-99) mg/dL POC Glucose (mg/dL) 102 H (75-99) mg/dL Calcium 8.2 L (8.4-10.2) mg/dL Microbiology - Last 24 Hours (Table) 12/21/16 15:10 Blood Culture - Preliminary Blood No Growth after 72 hours 12/21/16 15:45 Gram Stain - Preliminary Pleural Fluid Body Fluid Culture - Preliminary Assessment and Plan (1) Pneumonia Status: Acute (2) Parapneumonic effusion Status: Acute (3) COPD (chronic obstructive pulmonary disease) Status: Acute (4) Hyperlipidemia Status: Acute (5) GERD (gastroesophageal reflux disease) Status: Acute Plan: plan dated 12/24/2016. The patient appears to have a complicated left-sided effusion. The patient will have thoracic surgery see them. We'll continue to follow. We'll follow up on the cytology from the thoracentesis. Additional recommendations suggestions are forthcoming. The patient will continue on antibiotics breathing treatments and the like. Plan dated 12/17/2016 We'll await the report results of the cytology from the thoracentesis performed over the weekend. Thoracic surgery has been asked to see the patient. The patient clinically looks recently stable. We'll continue to follow. Prognosis is guarded. Prognosis would be poor if the pleural fluid came back for malignancy. Time with Patient: Less than 30
[2016-12-25] MEDS: ASPIRIN 81 MG CHEW PO SCH ×2 (12:20→12:30)
[2016-12-25] MEDS: ATORVASTATIN 10 MG TAB PO SCH ×2 (12:21→12:30)
[2016-12-25] MEDS: cloZAPine 25 MG TAB PO SCH (12:30)
[2016-12-25] MEDS: BENZTROPINE MESYLATE 0.5 MG TAB PO SCH ×2 (12:31→20:24)
[2016-12-25] MEDS: cloZAPine 100 MG TAB PO SCH ×2 (12:32→20:24)
[2016-12-25] MEDS: DILTIAZEM CD 120 MG CAP.ER.24H PO SCH (12:33)
[2016-12-25] MEDS: DOCUSATE 100 MG CAP PO SCH (12:33)
[2016-12-25] MEDS: DIVALPROEX ER 500 MG TAB.ER.24H PO SCH ×2 (12:33→20:24)
[2016-12-25] MEDS: HEPARIN SODIUM,PORCINE 5,000 UNIT/ML 1 ML VIAL SQ SCH ×2 (12:35→20:25)
[2016-12-25] MEDS: FAMOTIDINE 20 MG TAB PO SCH ×2 (12:35→20:24)
[2016-12-25] MEDS: FERROUS SULFATE 325 MG TAB PO SCH (12:36)
[2016-12-25] MEDS: CALCIUM CARB-VIT D 500MG-200UN 1 EACH TAB PO SCH (12:36)
[2016-12-25] MEDS: THIAMINE 100 MG TAB PO SCH (12:36)
[2016-12-25] MEDS: LISINOPRIL 2.5 MG TAB PO SCH (12:36)
[2016-12-25] MEDS: MULTIVITAMINS, THERA 1 EACH TAB PO SCH (12:36)
[2016-12-25] MEDS ORDERED: IV FLUID CONTINUATION 1,000 ML IV ONE (13:30)
[2016-12-25] MEDS ORDERED: LIDOCAINE 1% INJ 10MG/ML (10 ML MDV) SQ ONE ×2 (13:46→14:40)
[2016-12-25] MEDS ORDERED: MIDAZOLAM 2 MG/2 ML VIAL ONE (14:24)
[2016-12-25] MEDS ORDERED: PROPOFOL 10 MG/ML 20 ML VIAL IV ONE (14:24)
[2016-12-25] MEDS ORDERED: fentaNYL (PF) 50 MCG/ML 2 ML AMP ONE (14:24)
--- NOTE | 2016-12-25 14:25 | P.PN ---
Progress Note - Text This is to serve as an addendum further consultation dictated yesterday. In my assessment and plan I mentioned that the plan was to place a right Pleurx catheter. This was an incorrect statement the plan is to place a left Pleurx catheter. This was the plan was discussed with the patient and with the consenting officer.
--- NOTE | 2016-12-25 15:07 | P.OP ---
Date of Procedure: 12/25/16 Preoperative Diagnosis: Left pleural effusion Postoperative Diagnosis: Left pleural effusion Procedure(s) Performed: Left Pleurx catheter placement Implants: Pleurx catheter Anesthesia: MAC Surgeon: Ranjith Sanderson Estimated Blood Loss (ml): 5 IV fluids (ml): 200 Urine output (ml): 0 Pathology: none sent Condition: stable Disposition: PACU Indications for Procedure: Large symptomatic left pleural effusion despite left thoracentesis Operative Findings: 600 mL of serous fluid was drained Description of Procedure: The patient was brought to the operating room and placed supine on the operating table. Percussion of the left chest was performed and the location of the fluid was identified. This area and the left chest and upper quadrant were sterilely prepped and draped. 1% lidocaine was used for anesthesia. An 18 -gauge needle was used to puncture the left pleural space at the site of the percussed fluid and serous fluid was identified. Guidewire was placed through the needle and the needle was withdrawn. A 1 cm counterincision was made at the left costal margin anterior and inferior to the puncture site. The puncture site was enlarged to a 1-1/2 cm incision. Pleurex catheter was now tunneled from the counterincision to the puncture site and the cuff was placed just under the skin at the counterincision site. Introducer and dilator were placed over the wire into the left pleural space. Dilator and wire were removed. Clear serous fluid immediately was evacuated. Pleurex catheter was placed through the introducer sheath into the chest cavity and the introducer sheath was removed. Pleurex catheter was connected to Suction and a total of 600 mL was drained. The catheter was secured at the exit site with a 2-0 silk suture. The puncture site was closed with a 4-0 Vicryl subcuticular stitch. The puncture site was dressed with skin glue and a Band-Aid. Standard dressing was placed at the catheter exit site and the catheter was placed beneath a large clear plastic dressing. Patient was transferred to the recovery area.
--- NOTE | 2016-12-25 15:20 | XR ---
EXAMINATION TYPE: XR chest 1V portable DATE OF EXAM: 12/25/2016 3:12 PM CLINICAL HISTORY: Pleural catheter placement. TECHNIQUE: Single AP portable semiupright view of the chest is obtained. COMPARISON: Chest x-ray from [address] chest from yesterday. FINDINGS: There is new pleural catheter or drainage tube entering the left lower lung coiled in the left lateral midlung. There is interval improvement in left-sided pleural fluid collection after cath eter placement. There is diffuse left lung atelectasis and/or edema felt present. There is persistent small right pleural effusion. Cardiac silhouette size is stable and mildly enlarged. No mediastinal shift is seen. Osseous structures are demineralized. IMPRESSION: Interval improvement in left-sided loculated pleural fluid collection after catheter plac ement. Diffuse left lung atelectasis and/or edema is present.
[2016-12-25 15:37] LABS: Glucose,Whole Blood 92 mg/dL (75-99)
[2016-12-25] MEDS: SODIUM CHLORIDE 0.9% 1,000 ML IV SCH (16:20)
[2016-12-25 16:53] LABS: Glucose,Whole Blood 102 mg/dL (75-99)
--- NOTE | 2016-12-25 17:41 | P.PN ---
Subjective Date of service 12/25/2016. Progress note being dictated for Dr. Garner. Interval history: This a 71-year-old gentleman admitted with acute COPD exacerbation, left lower lobe pneumonia, ruling out malignancy, pleural effusion , status post thoracentesis and multiple other medical issues. Pleural cytology reporting no malignant cells. Evaluated by cardiothoracic surgery regarding complex loculated pleural effusion and VATS procedure being discussed. Continues on nebulized bronchodilators, systemic steroids, and antibiotics. Minimal nonproductive cough. Denies any chest pain, palpitations or increasing shortness of breath. Objective - Vital Signs Vital signs: Vital Signs Temp 98.1 F 12/25/16 13:31 Pulse 73 12/25/16 13:31 Resp 18 12/25/16 13:31 BP 132/71 12/25/16 13:31 Pulse Ox 96 12/25/16 13:31 Intake & Output 12/24/16 12/25/16 12/25/16 18:59 06:59 18:59 Intake Total 480 50 Output Total 300 Balance 480 -250 Intake: IV 50 Oral 480 Output: Urine 300 Other: Voiding Method Urinal Urinal Diaper Diaper # Voids 4 3 - Exam PHYSICAL EXAM: VITAL SIGNS: As above GENERAL: [Lying in bed, tired appearing] HEENT: [Pupils equal conjunctiva normal, poor dentition.] NECK: [Supple, no JVD] RESPIRATORY EFFORT:[Increased] LUNGS: [Diminished, with scattered rhonchi, no wheezes, no crackles] CARDIOVASCULAR[regular S1 and S2, no murmur rub or gallop, no edema] GI: [Abdomen soft, nontender, positive bowel sounds.] PSYCH: [Alert and oriented -2-3, mood and affect normal NEURO: No focal deficits, moves all 4 extremities, strength and sensation grossly intact - Labs CBC & Chem 7: 12/25/16 08:19 12/25/16 08:19 Labs: Abnormal Lab Results - Last 24 Hours (Table) 12/24/16 12/24/16 12/25/16 Range/Units 16:58 20:13 06:53 WBC (3.8-10.6) k/uL RBC (4.30-5.90) m/uL Hgb (13.0-17.5) gm/dL Hct (39.0-53.0) % Neutrophils # (1.3-7.7) k/uL Lymphocytes # (1.0-4.8) k/uL Glucose (74-99) mg/dL POC Glucose (mg/dL) 132 H 126 H 122 H (75-99) mg/dL Calcium (8.4-10.2) mg/dL 12/25/16 12/25/16 12/25/16 Range/Units 08:19 08:19 11:10 WBC 13.2 H (3.8-10.6) k/uL RBC 3.49 L (4.30-5.90) m/uL Hgb 10.1 L (13.0-17.5) gm/dL Hct 32.5 L (39.0-53.0) % Neutrophils # 12.0 H (1.3-7.7) k/uL Lymphocytes # 0.4 L (1.0-4.8) k/uL Glucose 104 H (74-99) mg/dL POC Glucose (mg/dL) 102 H (75-99) mg/dL Calcium 8.2 L (8.4-10.2) mg/dL Microbiology - Last 24 Hours (Table) 12/21/16 15:45 Gram Stain - Final Pleural Fluid Body Fluid Culture - Final 12/21/16 15:10 Blood Culture - Preliminary Blood No Growth after 72 hours Assessment and Plan Plan: 1. Acute exacerbation COPD with (pneumonia, possible community-acquired with left parapneumonic effusion, rule out malignancy. Status post left thoracentesis. Cytology pending. Loculated left pleural effusion. 2. History of chronic intermittent asthma, COPD 3. [Gastroesophageal reflux disease]. 4. [Hypertension]. 5. [History of pneumonia]. 6. [Degenerative joint disease]. 7. [Bipolar, depression, schizophrenia]. 8. Continued ongoing nicotine dependence 9. Hyperlipidemia Plan: Continue on current medication regime , nebulized bronchodilators, broad- spectrum IV antibiotics, steroids, monitoring and symptomatic treatment. Left Pleurx catheter placement pending. Smoking cessation readdressed. further recommendations to follow. The impression and plan of care has been dictated as directed. : I performed a H&P examination of this patient and discussed the same with the dictator. I agree with the dictator's note. Any additional findings/opinions/ etc. will be noted.
[2016-12-25 20:20] LABS: Glucose,Whole Blood 132 mg/dL (75-99)
[2016-12-25] MEDS: MONTELUKAST 10 MG TAB PO SCH (20:24)
[2016-12-25] MEDS: MELATONIN 3 MG TABLET PO SCH (20:25)
--- NOTE | 2016-12-26 07:23 | P.PN ---
<Claire Franklin - Last Filed: 12/26/16 07:17> Subjective Principal diagnosis: Large left loculated pleural effusion, status post left thoracentesis on 2016 POD #1 left Pleurx catheter placement Patient is currently sitting up in bed in no apparent distress. Denies pain/ shortness of breath. He has no new complaints at this time. Objective - Vital Signs Vital signs: Vital Signs Temp 97.4 F L 12/25/16 20:40 Pulse 88 12/25/16 20:40 Resp 17 12/25/16 20:40 BP 123/83 12/25/16 20:40 Pulse Ox 91 L 12/25/16 20:40 Intake & Output 12/25/16 12/26/16 12/26/16 18:59 06:59 18:59 Intake Total 450 160 Output Total 303 Balance 147 160 Intake: IV 450 160 Sodium Chloride 0.9% 1, 160 000 ml @ 20 mls/hr IV . Q24H [facility] Rx#:[id number] Output: Urine 300 Estimated Blood Loss 3 Other: Voiding Method Urinal Urinal Diaper Diaper # Voids 1 1 - Constitutional General appearance: Present: cooperative, no acute distress - Respiratory Details: Lungs sounds diminished bilaterally. Respirations even, nonlabored. Currently on 2 L nasal cannula. - Cardiovascular Details: S1, S2 present. Regular rate and rhythm. No edema present. - Gastrointestinal Gastrointestinal Comment(s): Abdomen soft, nontender, nondistended. Active bowel sounds 4 quadrants. - Genitourinary Genitourinary Comment(s): Continues to void clear, yellow urine per urinal, incontinent at times. - Integumentary Integumentary Comment(s): Left Pleurx catheter present covered with dry intact dressing. - Musculoskeletal Musculoskeletal: Present: strength equal bilaterally - Psychiatric Psychiatric: Present: A&O x's 3 - Allied health notes Allied health notes reviewed: nursing - Labs CBC & Chem 7: 12/25/16 08:19 12/25/16 08:19 Labs: Abnormal Lab Results - Last 24 Hours (Table) 12/25/16 12/25/16 12/25/16 Range/Units 08:19 08:19 11:10 WBC 13.2 H (3.8-10.6) k/uL RBC 3.49 L (4.30-5.90) m/uL Hgb 10.1 L (13.0-17.5) gm/dL Hct 32.5 L (39.0-53.0) % Neutrophils # 12.0 H (1.3-7.7) k/uL Lymphocytes # 0.4 L (1.0-4.8) k/uL Glucose 104 H (74-99) mg/dL POC Glucose (mg/dL) 102 H (75-99) mg/dL Calcium 8.2 L (8.4-10.2) mg/dL 12/25/16 12/25/16 Range/Units 16:52 20:11 WBC (3.8-10.6) k/uL RBC (4.30-5.90) m/uL Hgb (13.0-17.5) gm/dL Hct (39.0-53.0) % Neutrophils # (1.3-7.7) k/uL Lymphocytes # (1.0-4.8) k/uL Glucose (74-99) mg/dL POC Glucose (mg/dL) 102 H 132 H (75-99) mg/dL Calcium (8.4-10.2) mg/dL Microbiology - Last 24 Hours (Table) 12/21/16 15:10 Blood Culture - Preliminary Blood No Growth after 96 hours 12/21/16 15:45 Gram Stain - Final Pleural Fluid Body Fluid Culture - Final - Imaging and Cardiology Chest x-ray: image reviewed Assessment and Plan (1) COPD (chronic obstructive pulmonary disease) Status: Acute (2) Loculated pleural effusion Status: Acute Plan: 1. Continue antibiotics, steroids, respiratory treatments per pulmonology recommendations. 2. Encourage incentive spirometry. 3. Will drain Pleurx cath this morning 4. Case management consulted for Pleurx cath discharge planning. 5. Patient will need home care once discharged for Pleurx cath drainage and teaching to his skilled nursing staff. 6. May discharge patient from our standpoint, we will see patient PRN while still inpatient. 7. No need for follow-up appointment with thoracic surgeon unless/until patient needs Pleurx catheter removed. Time with Patient: Greater than 30 <Ranjith Sanderson - Last Filed: 12/26/16 07:57> Objective - Vital Signs Vital signs: Vital Signs Temp 97.4 F L 12/25/16 20:40 Pulse 88 03/29/17 07:45 Resp 17 12/25/16 20:40 BP 123/83 12/25/16 20:40 Pulse Ox 91 L 12/25/16 20:40 Intake & Output 12/25/16 12/26/16 12/26/16 18:59 06:59 18:59 Intake Total 450 160 Output Total 303 Balance 147 160 Intake: IV 450 160 Sodium Chloride 0.9% 1, 160 000 ml @ 20 mls/hr IV . Q24H [facility] Rx#:[id number] Output: Urine 300 Estimated Blood Loss 3 Other: Voiding Method Urinal Urinal Diaper Diaper # Voids 1 1 - Labs CBC & Chem 7: 12/25/16 08:19 12/25/16 08:19 Labs: Abnormal Lab Results - Last 24 Hours (Table) 12/25/16 12/25/16 12/25/16 Range/Units 08:19 08:19 11:10 WBC 13.2 H (3.8-10.6) k/uL RBC 3.49 L (4.30-5.90) m/uL Hgb 10.1 L (13.0-17.5) gm/dL Hct 32.5 L (39.0-53.0) % Neutrophils # 12.0 H (1.3-7.7) k/uL Lymphocytes # 0.4 L (1.0-4.8) k/uL Glucose 104 H (74-99) mg/dL POC Glucose (mg/dL) 102 H (75-99) mg/dL Calcium 8.2 L (8.4-10.2) mg/dL 12/25/16 12/25/16 Range/Units 16:52 20:11 WBC (3.8-10.6) k/uL RBC (4.30-5.90) m/uL Hgb (13.0-17.5) gm/dL Hct (39.0-53.0) % Neutrophils # (1.3-7.7) k/uL Lymphocytes # (1.0-4.8) k/uL Glucose (74-99) mg/dL POC Glucose (mg/dL) 102 H 132 H (75-99) mg/dL Calcium (8.4-10.2) mg/dL Microbiology - Last 24 Hours (Table) 12/21/16 15:10 Blood Culture - Preliminary Blood No Growth after 96 hours 12/21/16 15:45 Gram Stain - Final Pleural Fluid Body Fluid Culture - Final Assessment and Plan Plan: Please have Home care facility or agency update our office with volumes drained from catheter post discharge so we can determine when discontinuation of catheter is appropriate. Thank you.
[2016-12-26 07:38] LABS: Glucose,Whole Blood 92 mg/dL (75-99)
[2016-12-26] MEDS: INSULIN LISPRO (humaLOG) 300 UNIT/3 ML VIAL SQ SCH ×4 (07:42→20:40)
[2016-12-26] MEDS: IPRATROPIUM 0.5 MG/2.5 ML NEBU INHALATION SCH ×4 (07:44→19:57)
[2016-12-26] MEDS: LEVALBUTEROL NEB (CONC) 1.25 MG/0.5 ML AMP INHALATION SCH ×4 (07:44→19:56)
[2016-12-26] MEDS: BUDESONIDE 1 MG/2 ML NEBU INHALATION SCH ×2 (07:45→19:56)
[2016-12-26] MEDS: FORMOTEROL FUMARATE 20 MCG/2 ML NEBU INHALATION SCH ×2 (07:45→19:56)
[2016-12-26 08:17] LABS: Basophils % (A) 0 %; CH 29.4; CHCM 31.7; Eosinophils % (A) 0 %; HCT 33.2 % (39.0-53.0); HDW 2.44; HGB 10.5 gm/dL (13.0-17.5); Luc # (Auto) 0.12; Luc % (Auto) 1; Lymphocytes # (A) 0.6 k/uL (1.0-4.8); Lymphocytes % (A) 5 %; MCH 29.6 pg (25.0-35.0); MCHC 31.7 g/dL (31.0-37.0); MCV 93.2 fL (80.0-100.0); Mean Platelet Volume 6.7; Monocytes # (A) 0.7 k/uL (0-1.0); Monocytes % (A) 5 %; Neutrophils # (A) 11.4 k/uL (1.3-7.7); Neutrophils % (A) 89 %; RBC 3.56 m/uL (4.30-5.90); RDW 13.1 % (11.5-15.5); WBC 12.8 k/uL (3.8-10.6); WBC (Perox) 12.84
[2016-12-26] MEDS: methylPREDNISolone SOD SUCCI 40 MG/ML 1 ML VIAL IV SCH ×3 (08:19→23:00)
[2016-12-26] MEDS: LISINOPRIL 2.5 MG TAB PO SCH (08:19)
[2016-12-26] MEDS: cloZAPine 25 MG TAB PO SCH (08:20)
[2016-12-26] MEDS: DILTIAZEM CD 120 MG CAP.ER.24H PO SCH (08:20)
[2016-12-26] MEDS: BENZTROPINE MESYLATE 0.5 MG TAB PO SCH ×2 (08:20→20:42)
[2016-12-26] MEDS: DIVALPROEX ER 500 MG TAB.ER.24H PO SCH ×2 (08:20→20:43)
[2016-12-26] MEDS: FAMOTIDINE 20 MG TAB PO SCH ×2 (08:20→20:43)
[2016-12-26] MEDS: HEPARIN SODIUM,PORCINE 5,000 UNIT/ML 1 ML VIAL SQ SCH ×2 (08:20→20:42)
[2016-12-26] MEDS: cloZAPine 100 MG TAB PO SCH (08:20)
[2016-12-26] MEDS: PIPERACILLIN-TAZOBACTAM 3.375 GM in DEXTROSE/WATER 1 50ML.BAG IVPB SCH ×3 (08:20→22:59)
[2016-12-26] MEDS: DOCUSATE 100 MG CAP PO SCH (08:20)
[2016-12-26 08:24] LABS: Anion Gap 5 mmol/L; Blood Urea Nitrogen 19 mg/dL (9-20); Calcium 8.2 mg/dL (8.4-10.2); Carbon Dioxide 31 mmol/L (22-30); Chloride 106 mmol/L (98-107); Glucose 97 mg/dL (74-99); Non-African American GFR(MDRD) >60 (>60 ml/min/1.73 sqM); Potassium 4.8 mmol/L (3.5-5.1); Sodium 142 mmol/L (137-145)
--- NOTE | 2016-12-26 10:53 | P.PN ---
Subjective Progress note dated 12/24/2016 This is a 71-year-old male who is status post thoracentesis. Dr. Bates was very have thoracic surgery see the patient should his ultrasound show a loculated her complex pleural effusion. Apparently a does. Surgery will be consulted. The patient's clinically doing well though. No major complaints. Not producing any phlegm but not a particularly good historian. Denies any chest pain or chest discomfort. Not acutely short of breath. Not coughing up any phlegm. No fever no chills. No nausea vomiting or diarrhea. Progress note dated 12/25/2016 This is a 71-year-old male who I asked thoracic surgery to see. He status post thoracentesis done by my partner. His ultrasound, suggested a complex no effusion on the left side. Dr. Sanderson will see the patient consider a VATS procedure for a loculated effusion. From a clinical standpoint he is doing reasonably well. No major complaints. A little short of breath and but not significantly so. Coughing a bit. Not producing much phlegm. No fever no chills. No chest pain. No chest discomfort. Progress note dated 12/26/2016 71-year-old white male who had a Pleurx catheter placed today by Dr. Sanderson. The patient had a very complicated left-sided pleural effusion with septations and partitions. The patient's effusion was was loculated. Cytology turned out to be negative. We reviewed that with the pathologist. He seems to be doing relatively well. A little pain in the left chest area. Not physically short of breath. Is coughing a bit. Does sound congested. Objective - Vital Signs Vital signs: Vital Signs Temp 97.3 F L 12/26/16 07:00 Pulse 84 12/26/16 08:07 Resp 16 12/26/16 08:00 BP 169/82 12/26/16 07:00 Pulse Ox 91 L 12/26/16 07:00 Intake & Output 12/25/16 12/26/16 12/26/16 18:59 06:59 18:59 Intake Total 450 160 Output Total 303 450 Balance 147 160 -450 Intake: IV 450 160 Sodium Chloride 0.9% 1, 160 000 ml @ 20 mls/hr IV . Q24H [facility] Rx#:[id number] Output: Urine 300 450 Estimated Blood Loss 3 Other: Voiding Method Urinal Urinal Urinal Diaper Diaper Diaper # Voids 1 1 - Exam No acute distress, oriented 2. HEENT examination is grossly unremarkable. Mucous membranes are moist. No oral lesions. Neck supple. Full range of motion. No adenopathy. Cardiovascular examination reveals regular rhythm rate. S1-S2 normal. Lungs reveal diminished breath sounds throughout. A few scattered rhonchi. No wheezes or crackles. Abdomen soft bowel sounds are heard. Extremities are intact. - Labs CBC & Chem 7: 12/26/16 07:36 12/26/16 07:36 Labs: Abnormal Lab Results - Last 24 Hours (Table) 12/25/16 12/25/16 12/25/16 Range/Units 11:10 16:52 20:11 WBC (3.8-10.6) k/uL RBC (4.30-5.90) m/uL Hgb (13.0-17.5) gm/dL Hct (39.0-53.0) % Neutrophils # (1.3-7.7) k/uL Lymphocytes # (1.0-4.8) k/uL Carbon Dioxide (22-30) mmol/L POC Glucose (mg/dL) 102 H 102 H 132 H (75-99) mg/dL Calcium (8.4-10.2) mg/dL 12/26/16 12/26/16 Range/Units 07:36 07:36 WBC 12.8 H (3.8-10.6) k/uL RBC 3.56 L (4.30-5.90) m/uL Hgb 10.5 L (13.0-17.5) gm/dL Hct 33.2 L (39.0-53.0) % Neutrophils # 11.4 H (1.3-7.7) k/uL Lymphocytes # 0.6 L (1.0-4.8) k/uL Carbon Dioxide 31 H (22-30) mmol/L POC Glucose (mg/dL) (75-99) mg/dL Calcium 8.2 L (8.4-10.2) mg/dL Microbiology - Last 24 Hours (Table) 12/21/16 15:10 Blood Culture - Preliminary Blood No Growth after 96 hours 12/21/16 15:45 Gram Stain - Final Pleural Fluid Body Fluid Culture - Final Assessment and Plan (1) Pneumonia Status: Acute (2) Parapneumonic effusion Status: Acute (3) COPD (chronic obstructive pulmonary disease) Status: Acute (4) Hyperlipidemia Status: Acute (5) GERD (gastroesophageal reflux disease) Status: Acute Plan: plan dated 12/24/2016. The patient appears to have a complicated left-sided effusion. The patient will have thoracic surgery see them. We'll continue to follow. We'll follow up on the cytology from the thoracentesis. Additional recommendations suggestions are forthcoming. The patient will continue on antibiotics breathing treatments and the like. Plan dated 12/17/2016 We'll await the report results of the cytology from the thoracentesis performed over the weekend. Thoracic surgery has been asked to see the patient. The patient clinically looks recently stable. We'll continue to follow. Prognosis is guarded. Prognosis would be poor if the pleural fluid came back for malignancy. Plan dated 12/26/2016 The patient's doing well. Had a Pleurx catheter placed. Cytology was negative. We reviewed that with the pathologist. The patient seemed to be much more stable. Still congested somewhat. No respiratory distress. Very poor historian. We'll continue to follow. Time with Patient: Less than 30
[2016-12-26 12:05] LABS: Glucose,Whole Blood 167 mg/dL (75-99)
[2016-12-26] MEDS: THIAMINE 100 MG TAB PO SCH (12:15)
[2016-12-26] MEDS: FERROUS SULFATE 325 MG TAB PO SCH (12:15)
[2016-12-26] MEDS: MULTIVITAMINS, THERA 1 EACH TAB PO SCH (12:15)
[2016-12-26] MEDS: CALCIUM CARB-VIT D 500MG-200UN 1 EACH TAB PO SCH (12:15)
--- NOTE | 2016-12-26 12:30 | XR ---
EXAMINATION TYPE: XR chest 2V DATE OF EXAM: 12/26/2016 6:25 AM COMPARISON: 12/17/2016 HISTORY: Follow-up left-sided pleural catheter. TECHNIQUE: Frontal and lateral views of the chest are obtained. FINDINGS: Scattered senescent parenchymal changes noted. Hyperinflation compatible with COPD. Left-sided pleural catheter is unchanged in position. No evidence for sizable pneumothorax. Persisten t left basilar pleural-parenchymal opacity. Persistent right basilar atelectasis and/or infiltrate as well as small effusions. Heart size is stable. Mediastinal structures are stable and grossly unremarkable. No evidence for hilar prominence. Degenerative changes dorsal spine. IMPRESSION: 1. Stable chest.
[2016-12-26 16:55] LABS: Glucose,Whole Blood 134 mg/dL (75-99)
[2016-12-26] MEDS: SODIUM CHLORIDE 0.9% 1,000 ML IV SCH (17:36)
--- NOTE | 2016-12-26 18:00 | P.PN ---
Subjective Date of service 12/26/2016. Progress note being dictated for Dr. Garner. Interval history: This a 71-year-old gentleman admitted with acute COPD exacerbation, left lower lobe pneumonia, pleural cytology negative for malignancy, pleural effusion, status post thoracentesis and multiple other medical issues. Pleurx catheter placed per cardiothoracic surgery regarding complex loculated pleural effusion with 75 mL drained this morning. Mild discomfort, but overall pain controlled. Continues on nebulized bronchodilators , systemic steroids, and antibiotics. Minimal nonproductive cough. Denies any chest pain, palpitations or increasing shortness of breath. Objective - Vital Signs Vital signs: Vital Signs Temp 98.1 F 12/26/16 15:00 Pulse 84 12/26/16 16:00 Resp 16 12/26/16 15:47 BP 121/69 12/26/16 15:00 Pulse Ox 96 12/26/16 15:00 Intake & Output 12/25/16 12/26/16 12/26/16 18:59 06:59 18:59 Intake Total 450 160 190 Output Total 303 450 Balance 147 160 -260 Intake: IV 450 160 140 Sodium Chloride 0.9% 1, 160 140 000 ml @ 20 mls/hr IV . Q24H [facility] Rx#:[id number] Intake, IV Titration 50 Amount Piperacillin-Tazobactam 3 50 .375 gm In Dextrose/Water 1 50ml.bag @ 12.5 mls/hr IVPB Q8HR [facility] Rx#: [id number] Output: Urine 300 450 Estimated Blood Loss 3 Other: Voiding Method Urinal Urinal Urinal Diaper Diaper Diaper # Voids 1 1 - Exam PHYSICAL EXAM: VITAL SIGNS: As above GENERAL: [Lying in bed, no acute distress] HEENT: [Pupils equal conjunctiva normal, poor dentition.] NECK: [Supple, no JVD] RESPIRATORY EFFORT:[Increased] LUNGS: [Diminished, with scattered rhonchi, no wheezes, no crackles] CARDIOVASCULAR[regular S1 and S2, no murmur rub or gallop, no edema] GI: [Abdomen soft, nontender, positive bowel sounds.] PSYCH: [Alert and oriented -3, mood and affect normal NEURO: No focal deficits, moves all 4 extremities, strength and sensation grossly intact - Labs CBC & Chem 7: 12/26/16 07:36 12/26/16 07:36 Labs: Abnormal Lab Results - Last 24 Hours (Table) 12/25/16 12/26/16 12/26/16 Range/Units 20:11 07:36 07:36 WBC 12.8 H (3.8-10.6) k/uL RBC 3.56 L (4.30-5.90) m/uL Hgb 10.5 L (13.0-17.5) gm/dL Hct 33.2 L (39.0-53.0) % Neutrophils # 11.4 H (1.3-7.7) k/uL Lymphocytes # 0.6 L (1.0-4.8) k/uL Carbon Dioxide 31 H (22-30) mmol/L POC Glucose (mg/dL) 132 H (75-99) mg/dL Calcium 8.2 L (8.4-10.2) mg/dL 12/26/16 12/26/16 Range/Units 12:03 16:53 WBC (3.8-10.6) k/uL RBC (4.30-5.90) m/uL Hgb (13.0-17.5) gm/dL Hct (39.0-53.0) % Neutrophils # (1.3-7.7) k/uL Lymphocytes # (1.0-4.8) k/uL Carbon Dioxide (22-30) mmol/L POC Glucose (mg/dL) 167 H 134 H (75-99) mg/dL Calcium (8.4-10.2) mg/dL Microbiology - Last 24 Hours (Table) 12/21/16 15:10 Blood Culture - Preliminary Blood No Growth after 120 hours 12/21/16 15:45 Gram Stain - Final Pleural Fluid Body Fluid Culture - Final Assessment and Plan Plan: 1. Acute exacerbation COPD with (pneumonia, possible community-acquired with left parapneumonic effusion, pleural cytology negative for malignancy. Status post left thoracentesis. Loculated left pleural effusion, status post Pleurx catheter placement. 2. History of chronic intermittent asthma, COPD 3. [Gastroesophageal reflux disease]. 4. [Hypertension]. 5. [History of pneumonia]. 6. [Degenerative joint disease]. 7. [Bipolar, depression, schizophrenia]. 8. Continued ongoing nicotine dependence 9. Hyperlipidemia Plan: Continue on current medication regime , nebulized bronchodilators, broad- spectrum IV antibiotics, steroids, monitoring and symptomatic treatment. Aggressive pulmonary toileting/IS every hour while awake 10. Smoking cessation readdressed. further recommendations to follow. Discharge planning in progress for ECF rehab. The impression and plan of care has been dictated as directed. : I performed a H&P examination of this patient and discussed the same with the dictator. I agree with the dictator's note. Any additional findings/opinions/ etc. will be noted.
[2016-12-26 20:14] LABS: Glucose,Whole Blood 121 mg/dL (75-99)
[2016-12-26] MEDS: MELATONIN 3 MG TABLET PO SCH (20:42)
[2016-12-26] MEDS: MONTELUKAST 10 MG TAB PO SCH (20:42)
[2016-12-26] MEDS ORDERED: cloZAPine 100 MG TAB PO SCH (21:00)
[2016-12-27] MEDS: PIPERACILLIN-TAZOBACTAM 3.375 GM in DEXTROSE/WATER 1 50ML.BAG IVPB SCH (07:33)
[2016-12-27 07:59] LABS: Glucose,Whole Blood 79 mg/dL (75-99)
[2016-12-27] MEDS: BUDESONIDE 1 MG/2 ML NEBU INHALATION SCH (07:59)
[2016-12-27] MEDS: IPRATROPIUM 0.5 MG/2.5 ML NEBU INHALATION SCH ×2 (07:59→12:02)
[2016-12-27] MEDS: LEVALBUTEROL NEB (CONC) 1.25 MG/0.5 ML AMP INHALATION SCH ×2 (07:59→12:02)
[2016-12-27] MEDS: FORMOTEROL FUMARATE 20 MCG/2 ML NEBU INHALATION SCH (07:59)
[2016-12-27] MEDS: INSULIN LISPRO (humaLOG) 300 UNIT/3 ML VIAL SQ SCH ×2 (08:10→12:41)
[2016-12-27] MEDS: methylPREDNISolone SOD SUCCI 40 MG/ML 1 ML VIAL IV SCH (08:59)
[2016-12-27] MEDS ORDERED: cloZAPine 100 MG TAB PO SCH (09:00)
[2016-12-27] MEDS ORDERED: cloZAPine 25 MG TAB PO SCH (09:00)
[2016-12-27 09:03] VITALS: BP 155/79; RESP 20; TEMP 97.7
[2016-12-27] MEDS: DIVALPROEX ER 500 MG TAB.ER.24H PO SCH (09:03)
[2016-12-27] MEDS: LISINOPRIL 2.5 MG TAB PO SCH (09:03)
[2016-12-27] MEDS: DOCUSATE 100 MG CAP PO SCH (09:03)
[2016-12-27] MEDS: BENZTROPINE MESYLATE 0.5 MG TAB PO SCH (09:03)
[2016-12-27] MEDS: FAMOTIDINE 20 MG TAB PO SCH (09:03)
[2016-12-27] MEDS: DILTIAZEM CD 120 MG CAP.ER.24H PO SCH (09:03)
[2016-12-27] MEDS: ASPIRIN 81 MG CHEW PO SCH (09:03)
[2016-12-27] MEDS: ATORVASTATIN 10 MG TAB PO SCH (09:03)
[2016-12-27] MEDS: HEPARIN SODIUM,PORCINE 5,000 UNIT/ML 1 ML VIAL SQ SCH (09:04)
[2016-12-27 12:10] LABS: Glucose,Whole Blood 106 mg/dL (75-99)
[2016-12-27 12:14] VITALS: PULSE 96
--- NOTE | 2016-12-27 13:11 | P.PN ---
Subjective This is a 71-year-old white male with history of COPD, bipolar disorder, patient is a resident of a [place] [facility], admitted recently to [facility] with mostly symptoms of cough, fever, chills, and cough was productive with yellow phlegm. Chest x-ray and CT of the chest showed pneumonia involving the lingula left lower lobe and there was evidence of a left parapneumonic effusion. Patient was treated with a few days' history of antibiotics, bronchodilators, steroids, and he was not making much improvement. Hence the referral was made to our institution. Upon evaluation the patient, I felt the patient would benefit from a left sided thoracentesis which would be diagnostic and therapeutic at the same time. Hence I performed a left-sided thoracentesis at bedside, and I was able to drain about 550 mL of nonbloody pleural effusion, but felt to be exudative unless proven otherwise. The fluid was sent for different diagnostic studies. The patient himself is a very poor historian. And he is known to have history of bipolar disorder, questionable schizophrenia. The patient is seen again today 12/27/2016 in follow-up. He is status post left thoracentesis which was negative for malignancy. He is also status post left Pleurx catheter placement. He is seen again on the regular medical floor. He is awake and alert in no acute distress. He denies any worsening shortness of breath, cough or congestion. He is maintaining good O2 saturations in the low 90s on room air. He's been afebrile. He is anxious to go home. Objective - Vital Signs Vital signs: Vital Signs Temp 97.7 F 12/27/16 07:00 Pulse 96 12/27/16 12:14 Resp 20 12/27/16 12:02 BP 155/79 12/27/16 07:00 Pulse Ox 93 L 12/27/16 07:00 Intake & Output 12/26/16 12/27/16 12/27/16 18:59 06:59 18:59 Intake Total 190 1180 Output Total 450 Balance -260 1180 Intake: IV 140 Sodium Chloride 0.9% 1, 140 000 ml @ 20 mls/hr IV . Q24H [facility] Rx#:[id number] Intake, IV Titration 50 Amount Piperacillin-Tazobactam 3 50 .375 gm In Dextrose/Water 1 50ml.bag @ 12.5 mls/hr IVPB Q8HR [facility] Rx#: [id number] Oral 1180 Output: Urine 450 Other: Voiding Method Urinal Urinal Urinal Diaper Diaper Diaper # Voids 400 - Exam GENERAL EXAM: Alert, comfortable in no apparent distress. HEAD: Normocephalic. EYES: Normal reaction of pupils, equal size. NOSE: Clear with pink turbinates. THROAT: No erythema or exudates. NECK: No masses, no JVD. CHEST: No chest wall deformity. LUNGS: Equal air entry with few scattered rhonchi, crackles in the posterior bases more so on the left. Pleurx catheter in place. CVS: S1 and S2 normal with no audible murmurs, regular rhythm. ABDOMEN: No hepatosplenomegaly, normal bowel sounds, no guarding or rigidity. SPINE: No scoliosis or deformity SKIN: No rashes CENTRAL NERVOUS SYSTEM: No focal deficits, tone is normal in all 4 extremities. - Labs CBC & Chem 7: 12/26/16 07:36 12/26/16 07:36 Labs: Abnormal Lab Results - Last 24 Hours (Table) 12/26/16 12/26/16 12/27/16 Range/Units 16:53 20:13 12:03 POC Glucose (mg/dL) 134 H 121 H 106 H (75-99) mg/dL Microbiology - Last 24 Hours (Table) 12/21/16 15:10 Blood Culture - Preliminary Blood No Growth after 120 hours Assessment and Plan Plan: impression: #1 Acute left lower lobe pneumonia with left parapneumonic effusion, community acquired. Status post thoracentesis. Fluid analysis and cytology are negative for malignancy. Status post Pleurx catheter placement. #2 History of COPD, severity of which is unclear with history of chronic and ongoing tobacco dependence. #3 History of bipolar disorder and paranoid schizophrenia. #4 Hyperlipidemia. #5 Gastroesophageal reflux disease. #6 Arthritis in the bilateral shoulders. Plan: The patient was seen and evaluated by Dr. Mitchell. The patient is stable from the pulmonary standpoint and could be discharged home today. We'll continue with his current medications. He could follow-up in our office in 1 week's time we'll repeat his chest x-ray done. He is encouraged to call sooner with any recurrence of symptoms or other questions or concerns.
[2016-12-27] MEDS: MULTIVITAMINS, THERA 1 EACH TAB PO SCH (13:23)
[2016-12-27] MEDS: FERROUS SULFATE 325 MG TAB PO SCH (13:23)
[2016-12-27] MEDS: CALCIUM CARB-VIT D 500MG-200UN 1 EACH TAB PO SCH (13:23)
[2016-12-27] MEDS: THIAMINE 100 MG TAB PO SCH (13:23)
--- NOTE | 2016-12-27 14:50 | P.DS ---
Providers Date of admission: 12/21/16 13:09 Expected date of discharge: 12/27/16 Attending physician: Karina Garner Consults: 12/21/16 13:20 Consult Physician Routine Consulting Provider: Naveen Rene Consult Reason/Comments: Pneumonia Do you want consulting provider notified?: Already Contacted 12/24/16 11:40 Consult Physician Routine Consulting Provider: Marco Mendiola Consult Reason/Comments: Loculated pleural effusion Do you want consulting provider notified?: Yes Dr. Mitchell, Pulmonary Primary care physician: Karina Manley at [facility] Hospital Course: Final Diagnoses: 1. Acute exacerbation COPD with (pneumonia, possible community-acquired with left parapneumonic effusion, pleural cytology negative for malignancy. Status post left thoracentesis. Loculated left pleural effusion, status post Pleurx catheter placement. 2. History of chronic intermittent asthma, COPD 3. [Gastroesophageal reflux disease]. 4. [Hypertension]. 5. [History of pneumonia]. 6. [Degenerative joint disease]. 7. [Bipolar, depression, schizophrenia]. 8. Continued ongoing nicotine dependence 9. Hyperlipidemia Hospital Course:This is a 71-year-old gentleman admitted with acute COPD exacerbation, left lower lobe pneumonia, pleural cytology negative for malignancy, pleural effusion, status post thoracentesis and multiple other medical issues. Evaluated by pulmonary. Pleurx catheter placed per cardiothoracic surgery regarding complex loculated pleural effusion. Significant Clinical improvement. Mild discomfort, but overall pain controlled. Maintaned on nebulized bronchodilators, systemic steroids, and antibiotics. Cleared by all consults for discharge.Patient is being discharge in a stable condition with a guarded prognosis to [facility]. Patient Condition at Discharge: Stable Plan - Discharge Summary New Discharge Prescriptions: Amoxic-Pot Clav 875-125Mg [Augmentin 875-125] 1 tab PO Q12HR #10 tablet Benztropine Mesylate 0.5 mg PO BID #10 tablet predniSONE 10 mg PO DIRECTED #30 tab predniSONE 10 mg PO DIRECTED #30 tab Discharge Medication List Acetaminophen Tab [Tylenol] 500 - 1,000 mg PO Q6HR PRN 12/21/16 [History] Aspirin 81 mg PO DAILY 12/21/16 [History] Atorvastatin Calcium [Lipitor] 10 mg PO DAILY 12/21/16 [History] Calcium Carb-Vit D 500Mg-200Un [Oscal 500+D] 1 cap PO DAILY 12/21/16 [History] Diltiazem Cd [Cardizem CD] 120 mg PO DAILY 12/21/16 [History] Divalproex Sodium [Divalproex Sodium ER] 500 mg PO BID 12/21/16 [History] Docusate [Colace] 100 mg PO DAILY 12/21/16 [History] Ferrous Sulfate [Iron (65 MG Elemental)] 325 mg PO DAILY 12/21/16 [History] Lisinopril [Zestril] 2.5 mg PO DAILY 12/21/16 [History] Montelukast [Singulair] 10 mg PO HS 12/21/16 [History] Multivitamins, Thera [Multivitamin (formulary)] 1 tab PO DAILY 12/21/16 [History ] Ranitidine HCl 150 mg PO BID 12/21/16 [History] Thiamine [Vitamin B-1] 100 mg PO DAILY 12/21/16 [History] cloZAPine [Clozaril] 75 mg PO QAM 12/21/16 [History] cloZAPine [Clozaril] 100 mg PO QAM 12/21/16 [History] cloZAPine [Clozaril] 200 mg PO HS 12/21/16 [History] fluPHENAZine DECANOATE [Prolixin Decanoate] 1 dose IM Q21D 12/21/16 [History] Amoxic-Pot Clav 875-125Mg [Augmentin 875-125] 1 tab PO Q12HR #10 tablet [Rx] Ipratropium Nebulized [Atrovent Nebulized] 0.5 mg INHALATION RT-QID nebu [Rx] Levalbuterol Nebulized (Conc) [Xopenex Nebulized (Conc)] 1.25 mg INHALATION RT- QID nebule 12/24/16 [Rx] predniSONE 10 mg PO DIRECTED #30 tab 12/24/16 [Rx] Benztropine Mesylate 0.5 mg PO BID #10 tablet 12/27/16 [Rx] predniSONE 10 mg PO DIRECTED #30 tab 12/27/16 [Rx] Follow up Appointment(s)/Referral(s): Alonso Mitchell DO [Doctor of Osteopathic Medicine] - 1 Week (Repeat CXR) Vish Manley MD [REFERRING] - 3 Days Activity/Diet/Wound Care/Special Instructions: [place] [facility]: DIet: Cardiac Activity: as tolerated Please have home care/ECF call Dr. Sanderson's office at [phone] weekly to update us with the drainage amounts from the Pleurx catheter so that we may determine when to remove it. cbc,bmp in 3 days Discharge Disposition: TRANSFER TO SNF/ECF
== END 2016-12-27 16:28 | DRG 190 ==
LOC: 5MS5E 13:09
PROVIDERS: ADMIT Hospitalist; ATTEND Hospitalist
PROC: 0W9B3ZX Drainage of Left Pleural Cavity, Percutaneous Approach, Diagnostic (ICD-10-PCS; principal; 2016-12-21)
PROC: 0W9830Z Drainage of Chest Wall with Drainage Device, Percutaneous Approach (ICD-10-PCS; 2016-12-25)
DX: J44.0 Chronic obstructive pulmonary disease with (acute) lower respiratory infection (principal); J18.9 Pneumonia, unspecified organism; J90 Pleural effusion, not elsewhere classified; F20.0 Paranoid schizophrenia; J98.11 Atelectasis; I10 Essential (primary) hypertension; E78.5 Hyperlipidemia, unspecified; J44.1 Chronic obstructive pulmonary disease with (acute) exacerbation; F17.200 Nicotine dependence, unspecified, uncomplicated; F31.9 Bipolar disorder, unspecified; G47.00 Insomnia, unspecified; J45.20 Mild intermittent asthma, uncomplicated; K21.9 Gastro-esophageal reflux disease without esophagitis; M19.012 Primary osteoarthritis, left shoulder; M19.011 Primary osteoarthritis, right shoulder; Z79.52 Long term (current) use of systemic steroids; Z79.82 Long term (current) use of aspirin; Z79.899 Other long term (current) drug therapy; Z87.01 Personal history of pneumonia (recurrent)
CPT/HCPCS: 71010; 71020; 71260; 76604; 80048; 80053; 83036; 83615; 83735; 84157; 85025; 87040; 87070; 87205; 88108; 88305; 89050; 93005; 94640; 94760

== ENCOUNTER 2017-02-25 15:46 | Inpatient (IN) | payer MEDICARE, OTHER ==
[2017-02-25] MEDS ORDERED: IPRATROPIUM-ALBUTEROL 3 ML NEB INHALATION STA (16:04)
[2017-02-25] MEDS ORDERED: SODIUM CHLORIDE 0.9% 1,000 ML IV STA (16:04)
[2017-02-25] MEDS ORDERED: LEVOFLOXACIN 750MG-D5W PMX 750 MG in DEXTROSE/WATER 1 150ML.BAG IVPB STA (16:04)
[2017-02-25] MEDS ORDERED: SODIUM CHLORIDE 0.9% 500 ML IV STA (16:04)
--- NOTE | 2017-02-25 16:07 | ED ---
General Adult HPI - General Chief complaint: Shortness of Breath Stated complaint: diff breathing Time Seen by Provider: 02/25/17 15:47 Source: EMS, RN notes reviewed, old records reviewed Mode of arrival: EMS - History of Present Illness Initial comments: This is a 71-year-old male here for evaluation. This patient comes in for evaluation [facility] for reevaluation regarding resolution of empyema. Patient came to the hospital today shortness of breath with fever. Patient fever of 101 at [place]. Patient has residual or recurrent pneumonia. Patient himself is without complaints and in no distress. Patient has no complaints. - Related Data Home Medications Medication Instructions Recorded Confirmed Acetaminophen Tab [Tylenol] 500 - 1,000 mg PO Q6HR PRN 12/21/16 12/21/16 Aspirin 81 mg PO DAILY 12/21/16 12/21/16 Atorvastatin Calcium [Lipitor] 10 mg PO DAILY 12/21/16 12/21/16 Calcium Carb-Vit D 500Mg-200Un 1 cap PO DAILY 12/21/16 12/21/16 [Oscal 500+D] Diltiazem Cd [Cardizem CD] 120 mg PO DAILY 12/21/16 12/21/16 Divalproex Sodium [Divalproex 500 mg PO BID 12/21/16 12/21/16 Sodium ER] Docusate [Colace] 100 mg PO DAILY 12/21/16 12/21/16 Ferrous Sulfate [Iron (65 MG 325 mg PO DAILY 12/21/16 12/21/16 Elemental)] Lisinopril [Zestril] 2.5 mg PO DAILY 12/21/16 12/21/16 Montelukast [Singulair] 10 mg PO HS 12/21/16 12/21/16 Multivitamins, Thera [Multivitamin 1 tab PO DAILY 12/21/16 12/21/16 (formulary)] Ranitidine HCl 150 mg PO BID 12/21/16 12/21/16 Thiamine [Vitamin B-1] 100 mg PO DAILY 12/21/16 12/21/16 cloZAPine [Clozaril] 75 mg PO QAM 12/21/16 12/21/16 cloZAPine [Clozaril] 100 mg PO QAM 12/21/16 12/21/16 cloZAPine [Clozaril] 200 mg PO HS 12/21/16 12/21/16 fluPHENAZine DECANOATE [Prolixin 1 dose IM Q21D 12/21/16 12/21/16 Decanoate] Previous Rx's Medication Instructions Recorded Amoxic-Pot Clav 875-125Mg 1 tab PO Q12HR #10 tablet 12/24/16 [Augmentin 875-125] Ipratropium Nebulized [Atrovent 0.5 mg INHALATION RT-QID nebu 12/24/16 Nebulized] Levalbuterol Nebulized (Conc) 1.25 mg INHALATION RT-QID nebule 12/24/16 [Xopenex Nebulized (Conc)] Benztropine Mesylate 0.5 mg PO BID #10 tablet 12/27/16 predniSONE 10 mg PO DIRECTED #30 tab 12/27/16 HYDROcodone/APAP 5-325MG [[place] 5] 1 - 2 each PO Q6HR #1 tab 02/25/17 Allergies Allergy/AdvReac Type Severity Reaction Status Date / Time venom-honey bee Allergy Anaphylaxis Verified 02/25/17 16:31 Review of Systems ROS Statement: Those systems with pertinent positive or pertinent negative responses have been documented in the HPI. ROS Other: All systems not noted in ROS Statement are negative. Past Medical History Past Medical History: Asthma, COPD, GERD/Reflux, Hyperlipidemia, Pneumonia Additional Past Medical History / Comment(s): DJD, arthritis shoulders, past L leg fx-limps and one leg shorter. History of Any Multi-Drug Resistant Organisms: None Reported Past Surgical History: Appendectomy, Orthopedic Surgery, Tonsillectomy Additional Past Surgical History / Comment(s): L hip repair after fx, deviated septal surgery, hemorrhoidectomy, colonoscopy. Past Anesthesia/Blood Transfusion Reactions: No Reported Reaction Past Psychological History: Bipolar, Depression, Schizophrenia Additional Psychological History / Comment(s): Pt resides at [facility]. He has paranoid schizophrenia. He uses no assistive device. He uses the bus system. He states he is thinking about moving. Smoking Status: Current every day smoker Past Alcohol Use History: None Reported Additional Past Alcohol Use History / Comment(s): Pt states he smokes one cigarette a day. He started smoking in 1966. He states he used to drink occasionally but has had nothing to drink in 6 months. Past Drug Use History: Cocaine Additional Drug Use History / Comment(s): Pt states he used to use cocaine but quit that in 1991. - Past Family History Father Family Medical History: No Reported History Additional Family Medical History / Comment(s): Father was healthy and at the age of 83 yrs. Mother Family Medical History: No Reported History Additional Family Medical History / Comment(s): Mother was healthy and in her mid 80's. General Exam General appearance: alert, in no apparent distress Head exam: Present: atraumatic, normocephalic, normal inspection Eye exam: Present: normal appearance, PERRL, EOMI. Absent: scleral icterus, conjunctival injection, periorbital swelling ENT exam: Present: normal exam, mucous membranes moist Neck exam: Present: normal inspection. Absent: tenderness, meningismus, lymphadenopathy Respiratory exam: Present: normal lung sounds bilaterally. Absent: respiratory distress, wheezes, rales, rhonchi, stridor Cardiovascular Exam: Present: regular rate, normal rhythm, normal heart sounds. Absent: systolic murmur, diastolic murmur, rubs, gallop, clicks GI/Abdominal exam: Present: soft, normal bowel sounds. Absent: distended, tenderness, guarding, rebound, rigid Extremities exam: Present: normal inspection, full ROM, normal capillary refill. Absent: tenderness, pedal edema, joint swelling, calf tenderness Back exam: Present: normal inspection Neurological exam: Present: alert, oriented X3, CN II-XII intact Psychiatric exam: Present: normal affect, normal mood Skin exam: Present: warm, dry, intact, normal color. Absent: rash Course Vital Signs 02/25/17 02/25/17 02/25/17 15:51 16:20 16:37 Temperature 97.1 F L Pulse Rate 87 90 90 Respiratory 18 Rate Blood Pressure 155/80 O2 Sat by Pulse 99 Oximetry 02/25/17 16:45 Temperature 97.3 F L Pulse Rate 103 H Respiratory 26 H Rate Blood Pressure 152/81 O2 Sat by Pulse 99 Oximetry - Reevaluation(s) Reevaluation #1: 02/25/17 16:50 Transferring records are reviewed including vital signs lab work and x-ray EKG Findings - EKG Comments: EKG Findings:: EKG shows normal sinus rhythm rate of 89, TN 152, QRS 84, QTC 447 Medical Decision Making - Medical Decision Making 71-year-old EL with fever, shortness of breath, pneumonia. Patient has recent hospital inpatient admission, will be treated on broad-spectrum nosocomial antibiotics, breathing treatments and again for pulmonology evaluation - Radiology Data Radiology results: report reviewed (Chest x-ray does show improvement of empyema , likely residual pneumonia versus pneumonitis), image reviewed Disposition Clinical Impression: Pneumonia, Parapneumonic effusion, COPD (chronic obstructive pulmonary disease) , Loculated pleural effusion, Fever Disposition: ADMITTED IP TO THIS HOSP Condition: Fair
[2017-02-25] MEDS ORDERED: PIPERACILLIN-TAZOBACTAM 3.375 GM in DEXTROSE/WATER 1 50ML.BAG IVPB STA (16:10)
--- NOTE | 2017-02-25 16:25 | XR ---
EXAMINATION TYPE: XR chest 2V DATE OF EXAM: 02/25/2017 4:18 PM COMPARISON: 12/26/2016 HISTORY: Short of breath TECHNIQUE: Frontal and lateral views of the chest are obtained. FINDINGS: Heart and mediastinum appear normal. There is small linear density at the left lung base. There is no heart failure. There are chest leads. Bony thorax appears intact. There is patchy interst itial density in the left lower lobe. There is mild pleural thickening at the lateral left lung base. IMPRESSION: Compared to last exam there is significant clearing of the pleural fluid and pulmonary b asilar infiltrates and heart failure. There is some residual mild infiltrate in the left lower lobe.
[2017-02-25 18:07] VITALS: BMI 23.9
[2017-02-25] MEDS ORDERED: ACETAMINOPHEN TAB 500 MG TAB PO PRN (19:40)
[2017-02-25] MEDS ORDERED: ALBUTEROL NEBULIZED 2.5 MG/3 ML INHALATION PRN (19:40)
[2017-02-25] MEDS: BUDESONIDE 0.5 MG/2 ML NEBU INHALATION SCH (20:39)
[2017-02-25] MEDS: IPRATROPIUM-ALBUTEROL 3 ML NEB INHALATION SCH (20:39)
[2017-02-25] MEDS: BENZTROPINE MESYLATE 0.5 MG TAB PO SCH (21:18)
[2017-02-25] MEDS: MONTELUKAST 10 MG TAB PO SCH (21:18)
[2017-02-25] MEDS: DOCUSATE 100 MG CAP PO SCH (21:18)
[2017-02-25] MEDS: FAMOTIDINE 20 MG TAB PO SCH (21:18)
[2017-02-25] MEDS: ATORVASTATIN 10 MG TAB PO SCH (21:18)
[2017-02-25] MEDS: DIVALPROEX ER 500 MG TAB.ER.24H PO SCH (21:18)
[2017-02-25] MEDS ORDERED: cloZAPine 100 MG TAB PO ONE (21:30)
[2017-02-25] MEDS: SODIUM CHLORIDE 0.9% 1,000 ML IV SCH (22:56)
[2017-02-25 23:10] LABS: Basophils # (A) 0.1 k/uL (0-0.2); Basophils % (A) 0 %; CH 29.1; Eosinophils # (A) 0.1 k/uL (0-0.7); Eosinophils % (A) 1 %; HCT 37.8 % (39.0-53.0); HDW 2.89; HGB 11.8 gm/dL (13.0-17.5); Hypochromasia Moderate; Luc # (Auto) 0.11; Luc % (Auto) 1; Lymphocytes # (A) 0.7 k/uL (1.0-4.8); Lymphocytes % (A) 4 %; MCH 29.5 pg (25.0-35.0); MCHC 31.3 g/dL (31.0-37.0); MCV 94.3 fL (80.0-100.0); Monocytes # (A) 0.6 k/uL (0-1.0); Monocytes % (A) 4 %; Neutrophils # (A) 13.7 k/uL (1.3-7.7); Neutrophils % (A) 90 %; RDW 14.8 % (11.5-15.5); WBC 15.3 k/uL (3.8-10.6); WBC (Perox) 15.39
[2017-02-25] MEDS: PIPERACILLIN-TAZOBACTAM 3.375 GM in DEXTROSE/WATER 1 50ML.BAG IVPB SCH (23:19)
[2017-02-26] MEDS: SODIUM CHLORIDE 0.9% 1,000 ML IV SCH ×2 (05:36→15:59)
[2017-02-26] MEDS: IPRATROPIUM-ALBUTEROL 3 ML NEB INHALATION SCH ×4 (06:59→19:41)
[2017-02-26] MEDS: BUDESONIDE 0.5 MG/2 ML NEBU INHALATION SCH ×2 (06:59→19:41)
[2017-02-26] MEDS: PIPERACILLIN-TAZOBACTAM 3.375 GM in DEXTROSE/WATER 1 50ML.BAG IVPB SCH ×3 (08:43→22:58)
[2017-02-26] MEDS: BENZTROPINE MESYLATE 0.5 MG TAB PO SCH ×2 (08:50→20:41)
[2017-02-26] MEDS: ASPIRIN 81 MG CHEW PO SCH (08:50)
[2017-02-26] MEDS: CALCIUM CARB-VIT D 500MG-200UN 1 EACH TAB PO SCH (08:50)
[2017-02-26] MEDS: LISINOPRIL 2.5 MG TAB PO SCH (08:51)
[2017-02-26] MEDS: FERROUS SULFATE 325 MG TAB PO SCH (08:51)
[2017-02-26] MEDS: FAMOTIDINE 20 MG TAB PO SCH ×2 (08:51→20:40)
[2017-02-26] MEDS: DILTIAZEM CD 120 MG CAP.ER.24H PO SCH (08:51)
[2017-02-26] MEDS: THIAMINE 100 MG TAB PO SCH (08:51)
[2017-02-26] MEDS: cloZAPine 100 MG TAB PO SCH (08:55)
[2017-02-26] MEDS ORDERED: predniSONE 5 MG TAB PO SCH (09:00)
[2017-02-26] MEDS: LEVOFLOXACIN 750MG-D5W PMX 750 MG in DEXTROSE/WATER 1 150ML.BAG IVPB SCH (12:28)
[2017-02-26] MEDS: MULTIVITAMINS, THERA 1 EACH TAB PO SCH (12:29)
[2017-02-26] MEDS ORDERED: LEVOFLOXACIN 750MG-D5W PMX 750 MG in DEXTROSE/WATER 1 150ML.BAG IVPB SCH (14:00)
[2017-02-26] MEDS ORDERED: TEMAZEPAM 15 MG CAP PO PRN (15:46)
[2017-02-26] MEDS ORDERED: ALPRAZolam 0.25 MG TAB PO PRN (15:46)
[2017-02-26] MEDS: methylPREDNISolone SOD SUCCI 40 MG/ML 1 ML VIAL IV SCH ×2 (16:39→22:59)
--- NOTE | 2017-02-26 16:39 | CONS ---
DATE OF CONSULTATION: 71-year-old gentleman who apparently was transferred down from [facility] for possible pneumonia and empyema. Apparently presented to the hospital with complaints of shortness of breath and fever. Apparently, his temperature was 101 degrees at [place]. The patient's most recent chest x-ray shows almost complete resolution of his previous pneumonia. I am not sure exactly why he was admitted. The patient himself wants to be discharged home and states he is feeling just fine. He currently denies any distress. No shortness of breath. No fever, no chills. No cough. No other complaints. His home medications include: 1. Tylenol. 2. Aspirin. 3. Lipitor. 4. Os-Jem. 5. Diltiazem. 6. Colace. 7. Iron. 8. Singulair. 9. Zestril. 10. Multiple vitamins. 11. Ranitidine. 12. Thiamine. 13. Clozaril. 14. Prolixin. 15. The patient previously was on some prednisone. 16. Benztropine. 17. Xopenex. 18. Atrovent. 19. Augmentin. 20. [place]. ALLERGIES: HONEY BEE VENOM. Past medical history includes COPD/asthma and GERD, hyperlipidemia, pneumonia, DJD, arthritis, and previous surgical history includes left hip repair, deviated nasal septum repair, hemorrhoidectomy, colonoscopy, appendectomy. He also apparently has a history of a paranoid schizophrenia and lives in adult foster [facility]. SOCIAL HISTORY: Positive for previous heavy tobacco use. Does not smoke significantly anymore, but did smoke heavily in the past. Apparently also has been a social drinker in the past. Denies any significant illicit drug use currently but used to use cocaine in the past. He used cocaine in 1991. Family history is positive for no major medical problems and as per the ER lisbet H&P. REVIEW OF SYSTEMS: CONSTITUTIONAL: Negative. NEUROLOGICAL: Negative. HEENT: Negative. CARDIOVASCULAR: Negative. PULMONARY: Shortness of breath, cough, no phlegm production. He feels he is at baseline. GI/: Negative. Rheumatological/immunologic: Negative. ENDOCRINOLOGIC: Negative. Dermatologic: Negative. Current vital signs reveal temperature 97.5, which is the patient's T-max, heart rate 88, respiratory rate 20, blood pressure 130/72, mean 91 on 2 liters saturation 94 to 95%. Appears in no acute distress. HEENT examination is grossly unremarkable. Mucous membranes are moist. Neck is supple. Full range of motion. No adenopathy or thyromegaly. Cardiovascular examination reveals regular rhythm and rate. S1, S2 normal. Heart sounds are distant. No murmur. Lungs reveal a few scattered rhonchi. No wheezes or crackles. ABDOMEN: Soft. Bowel sounds are heard. EXTREMITIES: Intact. Chest x-ray done on February 25 and compared to the last x-ray done on December 26 and compared it shows significant clearing of the pleural fluid and pulmonary bibasilar infiltrates and heart failure. There is some minimal infiltrates or atelectasis at the left lung base. Nothing really impressive. Microbiology is all negative. Lab data is reviewed. White count 15.2, hemoglobin 9.8, hematocrit 37.8, platelet count 214,000. Influenza studies were negative. Medications are reviewed. Just from the pulmonary standpoint he is on albuterol, Pulmicort and Atrovent and Levaquin and a small dose of prednisone. ASSESSMENT: 1. Mild chronic obstructive pulmonary disease exacerbation likely triggered by purulent tracheobronchitis in a patient with an improved significantly better x-ray than a prior x-ray done 2 months prior. 2. Multiple medical problems and comorbidities as listed above. PLAN: I think this patient could be discharged. I will discharge him on a short course of antibiotics and his normal outpatient medications. He should have follow up with one of the compounder helper. No additional recommendations are made. Prognosis is guarded.
[2017-02-26 17:30] LABS: Glucose,Whole Blood 95 mg/dL (75-99)
[2017-02-26] MEDS: INSULIN LISPRO (humaLOG) 300 UNIT/3 ML VIAL SQ SCH ×2 (17:57→20:34)
--- NOTE | 2017-02-26 18:29 | HP ---
DATE OF ADMISSION: CHIEF COMPLAINT: Shortness of breath and cough. HISTORY OF PRESENT ILLNESS: This 71-year-old gentleman with a past medical history of multiple medical problems, asthma, chronic obstructive pulmonary disease, history of gastroesophageal reflux disease, hyperlipidemia, history of pneumonia, history of appendectomy, history of bipolar, depression, schizophrenia, was apparently living in [facility]. The patient also has paranoid schizophrenia. The patient was recently admitted to [facility] with COPD acute exacerbation, as well as pneumonia and parapneumonic effusion and possible empyema. The patient also had Pleurx catheter placed previously. The patient apparently was having shortness of breath and the patient also had a fever up to 101 degrees and the patient was thought to have some residual pneumonia. The patient admitted for further evaluation and treatment. A chest x-ray done at the time of admission, which was reviewed personally by me, showed possible bibasilar bronchopneumonia. There is no history of any fever, rigors, headache, loss of consciousness. A detailed history cannot be taken because of the patient's baseline mental status. Most of history is taken from my discussion with staff and review of the chart at this time. 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 Medications prior to admission include the home medications are: 1. Prolixin 50 mg IM b.i.d. 2. Prednisone 5 mg p.o. 3. Vitamin B 100 mg p.o. daily. 4. Ranitidine 150 mg p.o. b.i.d. 5. Multivitamin 1 p.o. daily. 6. Singulair 10 mg q.h.s. 7. Zestril 2.5 mg. 8. Iron 325 mg p.o. daily. 9. FazaClo 100 mg q.a.m. and 200 mg q.h.s. 10. Colace 100 mg q.h.s. 11. Depakote 1000 mg q.h.s. 12. Cardizem CD 120 mg p.o. daily. 13. Os-Jem with vitamin D. 14. Pulmicort 0.5 b.i.d. 15. Benztropine 0.5 mg daily. 16. Lipitor 10 mg q.h.s. 17. Ecotrin 81 mg p.o. daily. 18. Albuterol 2.5 q.i.d. p.r.n. 19. Tylenol 1000 mg q.6 p.r.n. 20. [place] 5 mg 1 tablet q.6 p.r.n. ALLERGIES: VENOM, HONEYBEE. FAMILY HISTORY: No history of heart disease or strokes in the family. SOCIAL HISTORY: History of occasional alcohol intake and previous history of smoking. Review of systems could not be taken at length because of patient's baseline mental status. PHYSICAL EXAMINATION: The pulse is 102, blood pressure 130/72, respirations 20, temperature 97.2, pulse ox 93% on 2 liters. HEENT: Conjunctivae normal. Oral mucosa moist. NECK: No jugular venous distention. No carotid bruit. No lymph node enlargement. CARDIOVASCULAR: S1 and S2. No S3, no S4. RESPIRATORY: Breath sounds diminished at the bases. A few scattered rhonchi. No crackles. ABDOMEN: Soft, nontender. No mass palpable. LEGS: No edema, no swelling. NERVOUS SYSTEM: Mild diffuse weakness. LYMPHATIC: No lymphadenopathy in the neck, axillae or groin. SKIN: No ulcer, rash or bleeding. JOINTS: No active deforming arthropathy. LABS: WBC 15.3, hemoglobin 11.8. ASSESSMENT: 1. Shortness of breath possible chronic obstructive pulmonary disease acute exacerbation with acute purulent tracheobronchitis or bilateral bronchopneumonia possibly gram negative. 2. Increased WBC. 3. Anemia, normocytic. 4. History of asthma, chronic obstructive pulmonary disease. 5. History of gastroesophageal reflux disease. 6. History of hypertension. 7. History of recent left parapneumonic effusion and empyema status post Pleurx catheter drainage. 8. History of degenerative joint disease. 9. History of appendectomy. 10. History of tonsillectomy. 11. History of bipolar, depression, schizophrenia. 12. History of gait dysfunction. 13. Remote history of cocaine abuse. 14. FULL CODE. RECOMMENDATIONS AND DISCUSSION: This 71-year-old gentleman who presented with multiple complex medical issues, we will monitor the patient closely, continue the current medications, continue symptomatic treatment. I recommend optimizing the bronchodilator treatment. Otherwise, empiric antibiotics have been initiated. I also recommend short course of IV steroids and monitor blood sugars closely. Continue with the rest of the home medications. PT, OT evaluation. Prognosis guarded because of multiple complex medical issues. Further recommendations to follow. Dr. Mitchell will be consulted. See orders for further details. JEND
[2017-02-26 19:37] LABS: Amorphous Sediment,Urine Rare /hpf; Appearance,Urine Clear (Clear); Bilirubin,Urine Negative (Negative); Glucose,Urine (UA) Negative (Negative); Ketones,Urine Negative (Negative); Leukocyte Esterase,Urine Moderate (Negative); Nitrite,Urine Negative (Negative); PH, Urine 7.5 (5.0-8.0); Particle Count 23863; Protein,Urine Negative (Negative); RBC,Urine <1 /hpf (0-5); Specific Gravity,Urine 1.006 (1.001-1.035); UA Billing (MACRO vs. MICRO) MICRO; Urobilinogen,Urine <2.0 mg/dL (<2.0); WBC,Urine 2 /hpf (0-5)
[2017-02-26 20:17] LABS: Glucose,Whole Blood 129 mg/dL (75-99)
[2017-02-26] MEDS: DIVALPROEX ER 500 MG TAB.ER.24H PO SCH (20:40)
[2017-02-26] MEDS: DOCUSATE 100 MG CAP PO SCH (20:40)
[2017-02-26] MEDS: HEPARIN SODIUM,PORCINE 5,000 UNIT/ML 1 ML VIAL SQ SCH (20:41)
[2017-02-26] MEDS: ATORVASTATIN 10 MG TAB PO SCH (20:41)
[2017-02-26] MEDS: MONTELUKAST 10 MG TAB PO SCH (20:43)
[2017-02-26] MEDS ORDERED: cloZAPine 100 MG TAB PO SCH (21:00)
[2017-02-27] MEDS: BUDESONIDE 0.5 MG/2 ML NEBU INHALATION SCH (07:27)
[2017-02-27] MEDS: IPRATROPIUM-ALBUTEROL 3 ML NEB INHALATION SCH ×2 (07:27→12:33)
[2017-02-27] MEDS ORDERED: PANTOPRAZOLE 40 MG TABLET PO SCH (07:30)
[2017-02-27 07:34] LABS: Glucose,Whole Blood 118 mg/dL (75-99)
[2017-02-27] MEDS: INSULIN LISPRO (humaLOG) 300 UNIT/3 ML VIAL SQ SCH ×2 (07:36→12:13)
[2017-02-27 07:46] VITALS: BP 124/67; RESP 17; TEMP 97.6
[2017-02-27] MEDS: CALCIUM CARB-VIT D 500MG-200UN 1 EACH TAB PO SCH (08:38)
[2017-02-27] MEDS: cloZAPine 100 MG TAB PO SCH (08:38)
[2017-02-27] MEDS: ASPIRIN 81 MG CHEW PO SCH (08:38)
[2017-02-27] MEDS: BENZTROPINE MESYLATE 0.5 MG TAB PO SCH (08:38)
[2017-02-27] MEDS: THIAMINE 100 MG TAB PO SCH (08:38)
[2017-02-27] MEDS: DILTIAZEM CD 120 MG CAP.ER.24H PO SCH (08:38)
[2017-02-27] MEDS: FAMOTIDINE 20 MG TAB PO SCH (08:38)
[2017-02-27] MEDS: FERROUS SULFATE 325 MG TAB PO SCH (08:38)
[2017-02-27] MEDS: methylPREDNISolone SOD SUCCI 40 MG/ML 1 ML VIAL IV SCH ×2 (08:39→15:35)
[2017-02-27] MEDS: HEPARIN SODIUM,PORCINE 5,000 UNIT/ML 1 ML VIAL SQ SCH (08:39)
[2017-02-27] MEDS: LISINOPRIL 2.5 MG TAB PO SCH (08:39)
[2017-02-27] MEDS: PIPERACILLIN-TAZOBACTAM 3.375 GM in DEXTROSE/WATER 1 50ML.BAG IVPB SCH ×2 (08:39→15:35)
[2017-02-27 08:47] LABS: Anion Gap 10 mmol/L; Blood Urea Nitrogen 14 mg/dL (9-20); Calcium 9.2 mg/dL (8.4-10.2); Carbon Dioxide 28 mmol/L (22-30); Chloride 101 mmol/L (98-107); Glucose 125 mg/dL (74-99); Non-African American GFR(MDRD) >60 (>60 ml/min/1.73 sqM); Potassium 4.4 mmol/L (3.5-5.1); Sodium 139 mmol/L (137-145)
--- NOTE | 2017-02-27 09:38 | CDI ---
In responding to this query, please exercise your independent professional judgment. The [facility] Coding Staff and Clinical Documentation Specialists appreciate your assistance in clarifying documentation, maintaining compliance with coding guidelines, accurately documenting patients condition and capturing severity of illness. The fact that a question is asked does not imply that any particular answer is desired or expected. Communication forms are a method of clarifying documentation and are not made part of the Legal Health Record. Thank you in advance for your clarification. Last Revision, July 2015 In[employer] [place]on [address] [place] [address] Documentation Clarification Form Date: 02/27/2017 9:11:00 AM From: Tavia Orozco RN, CDS Admit Date: 02/25/2017 4:05:00 PM Patient Name: Chadwick Orellana Visit Number: [id number] Dr. Karina Mccrary, History/Risk Factors: 71 y/o male presents for c/o shortness of breath and fever after recent discharge for Pneumonia and Empyema with history of COPD, Asthma, Admitted for Pneumonia, Parapneumonic Effusion, COPD per ED Clinical Indicators: WBC 15.3, HR 100 and 102 in ED them 84-96, Resp: 18-26 in ED then 16-20, Lung sounds, Rhonchi, short of breath w/ activity, non productive cough, CXR: small linear density at left lung base, compared to last exam significant clearing pleural effusion and pulmonary basilar infiltrates, some residual mild infiltrate LLL, Treatment: IV Zosyn, IV Levaquin, IV Solumedrol, Duoneb, Pulmonary consult, O2/ 2L, In order to capture the severity of condition, please clarify if the condition signifies and you are treating for: Bacterial Pneumonia, specify causal organism (if known) Gram Negative Pneumonia Due to Strep Due to Staph Due to E. Coli Other bacteria (specify) Viral Pneumonia, specify casual organism (if known) Healthcare Acquired Pneumonia/Pneumonia, unspecified Unable to determine Other, please specify Please document in your progress notes and discharge summary in order to capture severity of illness and risk of mortality. Include clinical findings that support your diagnosis. FYI: Press F11 to launch patient chart. Place X here if this finding has no clinical significance, is not applicable or if you are not able to provide any additional documentation. MTDD
[2017-02-27 09:52] LABS: Basophils % (A) 0 %; CH 29.3; CHCM 31.3; Eosinophils % (A) 0 %; HCT 40.1 % (39.0-53.0); HDW 2.88; HGB 12.5 gm/dL (13.0-17.5); Hypochromasia Slight; Luc # (Auto) 0.03; Luc % (Auto) 0; Lymphocytes # (A) 0.4 k/uL (1.0-4.8); Lymphocytes % (A) 4 %; MCH 29.2 pg (25.0-35.0); MCHC 31.2 g/dL (31.0-37.0); MCV 93.7 fL (80.0-100.0); Mean Platelet Volume 7.4; Monocytes # (A) 0.2 k/uL (0-1.0); Monocytes % (A) 2 %; Neutrophils # (A) 10.3 k/uL (1.3-7.7); Neutrophils % (A) 94 %; RBC 4.28 m/uL (4.30-5.90); RDW 14.8 % (11.5-15.5); WBC 10.9 k/uL (3.8-10.6); WBC (Perox) 10.95
--- NOTE | 2017-02-27 11:21 | PN ---
A 71-year-old gentleman transferred down from [facility]. He apparently was thought to have pneumonia and empyema. His chest x-ray actually is much improved. He had a recent pneumonia. That is pretty much cleared up. He apparently did have some shortness of breath and a slight temperature elevation. The patient is awake and alert today. Very lucid. Is not having any respiratory complaints. Denies any fever, cough, shortness of breath, chest congestion, phlegm production, tightness, wheezing, or hemoptysis. He states that he is feeling back to baseline. His current vital signs are stable and include a temperature of 97.6, heart rate 96, respiratory rate 17, blood pressure 124/67 and a 2 L saturation of 97%. Appears in no acute distress. HEENT examination is grossly unremarkable. Mucous membranes are moist. He does have an upper plate. No oral lesions. Neck is supple. Full range of motion. No adenopathy. Neck veins are flat. Cardiovascular examination reveals distant heart sounds. S1, S2 normal. No S3, S4 or murmur. Heart rate in the low 90s. Lungs reveal mostly clear breath sounds. A few scattered rhonchi. No wheezes or crackles. Nothing substantial. Breath sounds are equal bilaterally. Abdomen is soft. Bowel sounds are heard. Extremities are intact. No cyanosis, clubbing, or edema. Skin without rash. Lab data is reviewed. White count 10.9, hemoglobin 12.5, hematocrit 40.1, platelet count normal. Electrolytes are all normal. Chest x-ray is essentially normal. Microbiologic studies are pending or negative. Medications are reviewed. ASSESSMENT: 1. Mild chronic obstructive pulmonary disease exacerbation complicated by mild purulent tracheobronchitis without obvious pneumonia or empyema. 2. History of gastroesophageal reflux disease. 3. History of hyperlipidemia. 4. History of previous pneumonia. 5. Degenerative joint disease. 6. History of paranoid schizophrenia. PLAN: Will continue to follow. Likely discharge soon. Medications are reviewed. Patient can follow up with his family doctor up in the [place] area. Probably sees either Dr. Tang or Dr. Byers. No need for is to follow up with him as his chest x-ray nearly normal. We would be glad to see him in followup, though, if the primary would prefer that.
[2017-02-27 11:29] LABS: Glucose,Whole Blood 150 mg/dL (75-99)
[2017-02-27] MEDS: LEVOFLOXACIN 750MG-D5W PMX 750 MG in DEXTROSE/WATER 1 150ML.BAG IVPB SCH (12:12)
[2017-02-27] MEDS: MULTIVITAMINS, THERA 1 EACH TAB PO SCH (12:13)
[2017-02-27 14:28] LABS: Hemoglobin A1C 5.2 % (4.2-6.1)
[2017-02-27] MEDS: SODIUM CHLORIDE 0.9% 1,000 ML IV SCH (15:41)
[2017-02-27 16:04] VITALS: PULSE 100
--- NOTE | 2017-02-28 09:50 | DS ---
DATE OF ADMISSION: 02/25/2017 DATE OF DISCHARGE: 02/27/2017 Patient is admitted with COPD exacerbation. Patient does not have any recurrence of pneumonia or new pneumonia and patient has older pneumonia, which is improving and patient will be discharged today in stable medical condition to home with physical therapy. Patient is clinically doing well and at his baseline. Patient was seen and examined on the day of discharge. Vitals are stable. PHYSICAL EXAMINATION: GENERAL: The patient is alert and oriented x3, not in any acute distress. Well developed, well nourished. HEENT: Pupils are round and equally reacting to light. EOMI. No scleral icterus. No conjunctival pallor. Normocephalic, atraumatic. No pharyngeal erythema. No thyromegaly. CARDIOVASCULAR: S1 and S2 present. No murmurs, rubs, or gallops. PULMONARY: Chest is clear to auscultation, no wheezing or crackles. ABDOMEN: Soft, nontender, nondistended, normoactive bowel sounds. No palpable organomegaly. MUSCULOSKELETAL: No joint swelling or deformity. EXTREMITIES: No cyanosis, clubbing, or pedal edema. NEUROLOGICAL: Gross neurological examination did not reveal any focal deficits. SKIN: No rashes. FINAL DIAGNOSES: 1. Acute hypercapnic respiratory failure secondary to chronic obstructive pulmonary disease exacerbation, which improved. 2. Leukocytosis secondary to bronchitis. No pneumonia. 3. Gastroesophageal reflux disease. 4. Hypertension. 5. Degenerative joint disease. Please refer to my depart summary for the details of discharge medications. Activity as tolerated. Cardiac diet. Patient does have schizophrenia and patient has paranoid schizophrenia symptoms. Patient will need to follow up with primary care physician and his psychiatrist as soon as possible within a week. Spent greater than 35 minutes in total discharge process.
[2017-03-06] MEDS ORDERED: fluPHENAZine DECANOATE 25 MG/ML 5ML MDV IM SCH (09:00)
== END 2017-02-27 17:46 | disposition home health service (06) | DRG 191 ==
LOC: EC 15:46 → EEVIPCON 16:05 → 5MS5E 16:05
PROVIDERS: ADMIT Hospitalist; ATTEND Hospitalist
DX: J44.0 Chronic obstructive pulmonary disease with (acute) lower respiratory infection (principal); F20.0 Paranoid schizophrenia; D64.9 Anemia, unspecified; J20.9 Acute bronchitis, unspecified; E78.5 Hyperlipidemia, unspecified; J45.909 Unspecified asthma, uncomplicated; J44.1 Chronic obstructive pulmonary disease with (acute) exacerbation; K21.9 Gastro-esophageal reflux disease without esophagitis; Z87.01 Personal history of pneumonia (recurrent); F31.9 Bipolar disorder, unspecified; I10 Essential (primary) hypertension; M19.91 Primary osteoarthritis, unspecified site; Z91.030 Bee allergy status; R26.9 Unspecified abnormalities of gait and mobility; F17.210 Nicotine dependence, cigarettes, uncomplicated; Z87.898 Personal history of other specified conditions; Z90.49 Acquired absence of other specified parts of digestive tract; Z79.82 Long term (current) use of aspirin; Z79.51 Long term (current) use of inhaled steroids; Z79.52 Long term (current) use of systemic steroids; Z79.899 Other long term (current) drug therapy
CPT/HCPCS: 71020; 80048; 81001; 83036; 85025; 87502; 93005; 94640; 96365; 99285